=== PATIENT | female | born 1955 | race Caucasian/White ===

== ENCOUNTER 2019-09-30 13:00 | Outpatient (CLI) | payer OTHER, SELFPAY ==
[2019-09-30 13:20] LABS: Hematocrit 40.3 % (37.0-47.0); Hemoglobin 12.6 g/dL (12.0-15.0); Immature Reticulocyte Fraction 7.6 % (3.0-15.9); Mean Corpuscular HGB Conc 31.3 g/dl (32-36); Mean Corpuscular Hemoglobin 28.4 pg (26-34); Mean Corpuscular Volume 90.8 fl (80-100); Mean Platelet Volume 9.1 fl (7.4-10.4); Platelet Count Result 299 k/mm3 (150-375); Red Blood Count 4.44 M/mm3 (4.2-5.4); Reticulocyte Hemoglobin Conten 32.1 pg (28.2-35.7); Reticulocyte Percent 0.84 % (0.7-4.3); Reticulocytes Absolute 0.04 B/L (32.2-175.7); White Blood Count 5.3 K/mm3 (4.5-10.0)
[2019-09-30 13:32] LABS: Alanine Aminotransferase 16 U/L (4-35); Albumin Level 4.6 g/dL (3.5-5.1); Alkaline Phosphatase 55 U/L (38-126); Aspartate Amino Transferase 29 U/L (14-36); Bilirubin,Total 0.4 mg/dL (0.2-1.3); Blood Urea Nitrogen 11 mg/dL (7-17); Carbon Dioxide 32 mmol/L (22-30); Chloride 100 mmol/L (98-107); Estimated Glomerular Filt Rate > 60; Glucose 79 mg/dL (65-105); Magnesium 2.2 mg/dL (1.6-2.3); Phosphorus 4.2 mg/dL (2.5-4.5); Potassium 3.7 mmol/L (3.4-5.0); Sodium 137 mmol/L (137-145)
[2019-09-30 14:07] LABS: Vitamin D 25 Hydroxy 88.9 ng/mL
[2019-09-30 17:08] LABS: Hemoglobin A1C 5.9 % (<5.7)
== END 2019-09-30 13:01 | disposition home or self-care (01) ==
PROVIDERS: PCP Family Medicine; Visit Provider Family Medicine
DX: M81.0 Age-related osteoporosis without current pathological fracture (principal); D64.9 Anemia, unspecified; E21.3 Hyperparathyroidism, unspecified
CPT/HCPCS: 36415; 80053; 82306; 83036; 83735; 84100; 85027; 85046; 86337

== ENCOUNTER 2020-04-02 14:35 | Outpatient (CLI) | payer OTHER, SELFPAY ==
[2020-04-02 15:11] LABS: Basophils Absolute Auto 0.1 K/mm3 (0.0-0.1); Basophils Percent Auto 1.1 % (0.2-1.2); Eosinophils Absolute Auto 0.1 K/mm3 (0-0.3); Hematocrit 36.9 % (37.0-47.0); Hemoglobin 12.3 g/dL (12.0-15.0); Immature Granulocyte Absolute 0.01 K/mm3 (0.00-0.031); Immature Granulocyte Percent A 0.2 % (0-0.5); Lymphocytes Absolute Auto 1.66 K/mm3 (0.9-3.2); Lymphocytes Percent Auto 35.2 % (18.3-44.2); Mean Corpuscular HGB Conc 33.3 g/dl (32-36); Mean Corpuscular Hemoglobin 29.6 pg (26-34); Mean Corpuscular Volume 88.9 fl (80-100); Mean Platelet Volume 8.9 fl (7.4-10.4); Monocytes Absolute Auto 0.5 K/mm3 (0.1-0.6); Neutrophils Absolute Auto 2.4 K/mm3 (1.3-6.7); Neutrophils Percent Auto 50.5 % (45.5-73.1); Platelet Count Result 311 k/mm3 (150-375); Red Blood Count 4.15 M/mm3 (4.2-5.4); Red Cell Distribution Width 14.8 % (11.5-14.5); White Blood Count 4.7 K/mm3 (4.5-10.0)
[2020-04-02 15:27] LABS: Alanine Aminotransferase 18 U/L (4-35); Albumin Level 4.5 g/dL (3.5-5.1); Alkaline Phosphatase 50 U/L (38-126); Anion Gap 6 mmol/L (8-16); Aspartate Amino Transferase 27 U/L (14-36); Bilirubin,Total 0.4 mg/dL (0.2-1.3); Blood Urea Nitrogen 10 mg/dL (7-17); CRP < 0.5 mg/dL (<1.0); Calcium 8.9 mg/dL (8.4-10.2); Carbon Dioxide 31 mmol/L (22-30); Chloride 100 mmol/L (98-107); Estimated Glomerular Filt Rate > 60; Glucose 92 mg/dL (65-105); Potassium 3.7 mmol/L (3.4-5.0); Sodium 137 mmol/L (137-145)
[2020-04-02 15:51] LABS: Erythrocyte Sedimentation Rate 13 mm/hr (0-20)
== END 2020-04-02 14:36 | disposition home or self-care (01) ==
PROVIDERS: PCP Family Medicine; Visit Provider Registered Nurse
DX: R76.8 Other specified abnormal immunological findings in serum (principal); M25.50 Pain in unspecified joint
CPT/HCPCS: 36415; 80053; 85025; 85652; 86140

== ENCOUNTER 2020-05-28 10:41 | Outpatient (CLI) | payer OTHER, SELFPAY ==
[2020-05-28 12:26] LABS: Iron 60 ug/dL (37-170)
[2020-05-28 12:31] LABS: CRP < 0.5 mg/dL (<1.0); Calcium 9.6 mg/dL (8.4-10.2)
[2020-05-28 12:36] LABS: Percent Iron Saturation 13 % (20-50)
[2020-05-28 12:40] LABS: Parathyroid Intact 28.1 pg/mL (7.5-53.5)
[2020-05-28 13:03] LABS: Ferritin 5.08 ng/mL (11.1-264)
== END 2020-05-28 10:42 | disposition home or self-care (01) ==
LOC: ANHLAB 10:44
PROVIDERS: PCP Family Medicine; Referring Provider Internal Medicine Hematology & Oncology; Visit Provider Family Medicine
DX: E21.3 Hyperparathyroidism, unspecified (principal); D64.9 Anemia, unspecified
CPT/HCPCS: 36415; 82310; 82728; 83525; 83540; 83550; 83970; 84681; 86140

== ENCOUNTER 2021-05-14 09:09 | Outpatient (CLI) | payer OTHER, SELFPAY ==
[2021-05-14 09:43] LABS: Hematocrit 38.6 % (37.0-47.0); Hemoglobin 12.3 g/dL (12.0-15.0); Mean Corpuscular HGB Conc 31.9 g/dl (32-36); Mean Corpuscular Hemoglobin 28.9 pg (26-34); Mean Corpuscular Volume 90.8 fl (80-100); Mean Platelet Volume 8.9 fl (7.4-10.4); Platelet Count Result 357 k/mm3 (150-375); Red Blood Count 4.25 M/mm3 (4.2-5.4); Red Cell Distribution Width 14.4 % (11.5-14.5); White Blood Count 4.4 K/mm3 (4.5-10.0)
[2021-05-14 09:58] LABS: Alanine Aminotransferase 20 U/L (4-35); Albumin Level 4.5 g/dL (3.5-5.1); Alkaline Phosphatase 39 U/L (38-126); Anion Gap 6 mmol/L (8-16); Aspartate Amino Transferase 30 U/L (14-36); Bilirubin,Total 0.4 mg/dL (0.2-1.3); Blood Urea Nitrogen 10 mg/dL (7-17); Calcium 9.1 mg/dL (8.4-10.2); Carbon Dioxide 30 mmol/L (22-30); Chloride 99 mmol/L (98-107); Cholesterol 243 mg/dL (0-200); Estimated Glomerular Filt Rate > 60; Glucose 100 mg/dL (65-110); HDL Direct 97 mg/dL; Potassium 4.1 mmol/L (3.4-5.0); Sodium 135 mmol/L (137-145); Triglycerides 52 mg/dL (<150)
[2021-05-14 10:09] LABS: LDL Cholesterol Direct 114 mg/dL
== END 2021-05-14 09:10 | disposition home or self-care (01) ==
LOC: ANHLAB 09:11
PROVIDERS: PCP Family Medicine; Visit Provider Family Medicine
DX: E55.9 Vitamin D deficiency, unspecified (principal); E61.1 Iron deficiency; E21.3 Hyperparathyroidism, unspecified; D64.9 Anemia, unspecified
CPT/HCPCS: 36415; 80053; 80061; 82306; 82310; 83970; 85027

== ENCOUNTER 2022-07-10 08:37 | Outpatient (CLI) | payer MEDICARE, SELFPAY ==
[2022-07-10 19:24] LABS: Basophils Absolute Auto 0.1 K/mm3 (0.0-0.1); Basophils Percent Auto 1.2 % (0.2-1.2); Eosinophils Absolute Auto 0.2 K/mm3 (0-0.3); Eosinophils Percent Auto 4.9 % (0-4.4); Hematocrit 34.2 % (37.0-47.0); Hemoglobin 10.2 g/dL (12.0-15.0); Immature Granulocyte Absolute 0.02 K/mm3 (0.00-0.031); Immature Granulocyte Percent A 0.4 % (0-0.5); Lymphocytes Absolute Auto 1.31 K/mm3 (0.9-3.2); Lymphocytes Percent Auto 26.7 % (18.3-44.2); Mean Corpuscular HGB Conc 29.8 g/dl (32-36); Mean Corpuscular Hemoglobin 23.3 pg (26-34); Mean Corpuscular Volume 78.3 fl (80-100); Monocytes Absolute Auto 0.6 K/mm3 (0.1-0.6); Monocytes Percent Auto 12.4 % (2.6-8.5); Neutrophils Absolute Auto 2.7 K/mm3 (1.3-6.7); Neutrophils Percent Auto 54.4 % (45.5-73.1); Platelet Count Result 406 k/mm3 (150-375); Red Blood Count 4.37 M/mm3 (4.2-5.4); White Blood Count 4.9 K/mm3 (4.5-10.0)
[2022-07-10 19:53] LABS: Rheumatoid Factor < 8.6 IU/ML (<12)
[2022-07-10 20:11] LABS: Alanine Aminotransferase 25 U/L (6-35); Albumin Level 4.5 g/dL (3.5-5.1); Alkaline Phosphatase 46 U/L (38-126); Anion Gap 5 mmol/L (8-16); Aspartate Amino Transferase 36 U/L (14-36); Bilirubin,Total 0.5 mg/dL (0.2-1.3); Blood Urea Nitrogen 13 mg/dL (7-17); Calcium 8.7 mg/dL (8.4-10.2); Carbon Dioxide 31 mmol/L (22-30); Chloride 97 mmol/L (98-107); Cholesterol 256 mg/dL (0-200); Estimated Glomerular Filt Rate > 60; Glucose 79 mg/dL (65-110); HDL Direct 100 mg/dL; Potassium 3.9 mmol/L (3.4-5.0); Sodium 133 mmol/L (137-145); Triglycerides 48 mg/dL (<150)
[2022-07-10 20:19] LABS: Platelet Estimate Increased (Adequate)
[2022-07-10 20:20] LABS: Schistocytes None Seen (NORMAL)
[2022-07-10 20:21] LABS: Anisocytosis 2+ (NORMAL); Hypochromasia 1+ (NORMAL)
[2022-07-10 20:22] LABS: LDL Cholesterol Direct 98 mg/dL
[2022-07-10 20:52] LABS: Hepatitis C Virus Antibody Negative (Negative)
[2022-07-10 22:15] LABS: Free T4 Free Thyroxine Reflex 0.82 ng/dL (0.78-2.19)
[2022-07-10 22:57] LABS: Total Triiodothyronine (T3) 1.26 NG/ML (0.97-1.69)
[2022-07-14 08:22] LABS: ANA Cascade Screen Negative (Negative)
== END 2022-07-10 08:38 | disposition home or self-care (01) ==
PROVIDERS: PCP Family Medicine; Visit Provider Physician Assistant
DX: Z00.00 Encounter for general adult medical examination without abnormal findings (principal); M06.9 Rheumatoid arthritis, unspecified; M81.0 Age-related osteoporosis without current pathological fracture; Z79.899 Other long term (current) drug therapy
CPT/HCPCS: 36415; 80053; 80061; 84439; 84443; 84480; 85025; 86038; 86430; 86803

== ENCOUNTER 2022-07-23 11:05 | Outpatient (NON) | payer MEDICARE, SELFPAY ==
[2022-07-23 22:04] LABS: IFOB Positive Control Positive
[2022-07-23 22:05] LABS: Immunochemical Fecal Occult Bl Positive (N)
== END 2022-07-23 11:06 | disposition home or self-care (01) ==
LOC: ANHGOSHLAB 11:07
PROVIDERS: PCP Family Medicine; Visit Provider Family Medicine
DX: R19.5 Other fecal abnormalities (principal)
CPT/HCPCS: 82274

== ENCOUNTER 2022-08-15 14:18 | Outpatient (CLI) | payer MEDICARE, SELFPAY ==
[2022-08-15 18:36] LABS: Basophils Absolute Auto 0.1 K/mm3 (0.0-0.1); Basophils Percent Auto 1.2 % (0.2-1.2); Eosinophils Absolute Auto 0.2 K/mm3 (0-0.3); Eosinophils Percent Auto 3.6 % (0-4.4); Hematocrit 35.8 % (37.0-47.0); Hemoglobin 10.8 g/dL (12.0-15.0); Immature Granulocyte Absolute 0.01 K/mm3 (0.00-0.031); Immature Granulocyte Percent A 0.2 % (0-0.5); Lymphocytes Absolute Auto 1.99 K/mm3 (0.9-3.2); Lymphocytes Percent Auto 34.2 % (18.3-44.2); Mean Corpuscular HGB Conc 30.2 g/dl (32-36); Mean Corpuscular Hemoglobin 25.1 pg (26-34); Mean Corpuscular Volume 83.3 fl (80-100); Mean Platelet Volume 9.6 fl (7.4-10.4); Monocytes Absolute Auto 0.6 K/mm3 (0.1-0.6); Monocytes Percent Auto 10.3 % (2.6-8.5); Neutrophils Absolute Auto 2.9 K/mm3 (1.3-6.7); Neutrophils Percent Auto 50.5 % (45.5-73.1); Platelet Count Result 343 k/mm3 (150-375); Red Cell Distribution Width 21.8 % (11.5-14.5); White Blood Count 5.8 K/mm3 (4.5-10.0)
[2022-08-15 18:45] LABS: Iron 50 ug/dL (37-170)
[2022-08-15 18:56] LABS: Percent Iron Saturation 11 % (20-50)
[2022-08-15 19:20] LABS: Ferritin 5.69 ng/mL (11.1-264)
== END 2022-08-15 14:19 | disposition home or self-care (01) ==
LOC: ANHGOSHLAB 14:20
PROVIDERS: PCP Family Medicine; Visit Provider Physician Assistant
DX: E61.1 Iron deficiency (principal)
CPT/HCPCS: 36415; 82728; 83540; 83550; 85025

== ENCOUNTER 2022-10-31 09:08 | Outpatient (CLI) | payer MEDICARE, SELFPAY ==
[2022-10-31 14:20] LABS: Basophils Absolute Auto 0.1 K/mm3 (0.0-0.1); Basophils Percent Auto 1.4 % (0.2-1.2); Eosinophils Absolute Auto 0.2 K/mm3 (0-0.3); Eosinophils Percent Auto 3.8 % (0-4.4); Hematocrit 40.4 % (37.0-47.0); Hemoglobin 12.8 g/dL (12.0-15.0); Immature Granulocyte Absolute 0.01 K/mm3 (0.00-0.031); Immature Granulocyte Percent A 0.2 % (0-0.5); Lymphocytes Absolute Auto 1.34 K/mm3 (0.9-3.2); Lymphocytes Percent Auto 30.2 % (18.3-44.2); Mean Corpuscular HGB Conc 31.7 g/dl (32-36); Mean Corpuscular Hemoglobin 28.4 pg (26-34); Mean Corpuscular Volume 89.6 fl (80-100); Mean Platelet Volume 9.1 fl (7.4-10.4); Monocytes Absolute Auto 0.5 K/mm3 (0.1-0.6); Neutrophils Absolute Auto 2.3 K/mm3 (1.3-6.7); Neutrophils Percent Auto 52.4 % (45.5-73.1); Platelet Count Result 263 k/mm3 (150-375); Red Blood Count 4.51 M/mm3 (4.2-5.4); Red Cell Distribution Width 19.9 % (11.5-14.5); White Blood Count 4.4 K/mm3 (4.5-10.0)
[2022-10-31 14:39] LABS: Iron 100 ug/dL (37-170)
[2022-10-31 14:48] LABS: Alanine Aminotransferase 24 U/L (6-35); Albumin Level 4.2 g/dL (3.5-5.1); Alkaline Phosphatase 40 U/L (38-126); Anion Gap 5 mmol/L (8-16); Aspartate Amino Transferase 33 U/L (14-36); Bilirubin,Total 0.5 mg/dL (0.2-1.3); Blood Urea Nitrogen 10 mg/dL (7-17); Calcium 8.7 mg/dL (8.4-10.2); Carbon Dioxide 30 mmol/L (22-30); Chloride 102 mmol/L (98-107); Estimated Glomerular Filt Rate > 60; Glucose 92 mg/dL (65-110); Potassium 3.9 mmol/L (3.4-5.0); Sodium 137 mmol/L (137-145)
[2022-10-31 14:51] LABS: Percent Iron Saturation 25 % (20-50)
[2022-10-31 14:58] LABS: Free T4 Free Thyroxine 0.72 ng/mL (0.78-2.19)
[2022-10-31 15:15] LABS: Ferritin 7.63 ng/mL (11.1-264)
[2022-11-05 13:18] LABS: Vitamin D 1,25 (OH)2 Total 48 pg/mL (18-72); Vitamin D2 1,25 (OH)2 <8 pg/mL; Vitamin D3 1,25 (OH)2 48 pg/mL
== END 2022-10-31 09:09 | disposition home or self-care (01) ==
LOC: ANHGOSHLAB 09:10
PROVIDERS: PCP Family Medicine; Visit Provider Physician Assistant
DX: M06.9 Rheumatoid arthritis, unspecified (principal); E55.9 Vitamin D deficiency, unspecified; E21.3 Hyperparathyroidism, unspecified; E61.1 Iron deficiency; Z79.899 Other long term (current) drug therapy
CPT/HCPCS: 36415; 80053; 82652; 82728; 83540; 83550; 84439; 84443; 85025

== ENCOUNTER 2022-11-17 14:29 | Outpatient (CLI) | payer MEDICARE, SELFPAY ==
[2022-11-20 04:14] LABS: Thyroid Peroxidase Antibodies 873 IU/mL (<9)
== END 2022-11-17 14:30 | disposition home or self-care (01) ==
LOC: ANHGOSHLAB 14:30
PROVIDERS: PCP Family Medicine; Visit Provider Family Medicine
DX: R94.6 Abnormal results of thyroid function studies (principal)
CPT/HCPCS: 36415; 84443; 86376

== ENCOUNTER 2023-02-03 09:41 | Outpatient (CLI) | payer MEDICARE, SELFPAY | END 2023-02-03 09:42 | disposition home or self-care (01) | PROVIDERS: PCP Family Medicine; Visit Provider Family Medicine | DX: E03.9 Hypothyroidism, unspecified (principal) | CPT/HCPCS: 36415; 84443 ==

== ENCOUNTER 2023-03-05 10:16 | Outpatient (CLI) | payer MEDICARE, SELFPAY ==
[2023-03-05 13:57] LABS: Basophils Percent Auto 0.7 % (0.2-1.2); Eosinophils Absolute Auto 0.2 K/mm3 (0-0.3); Eosinophils Percent Auto 2.7 % (0-4.4); Hematocrit 43.5 % (37.0-47.0); Hemoglobin 13.9 g/dL (12.0-15.0); Immature Granulocyte Absolute 0.03 K/mm3 (0.00-0.031); Immature Granulocyte Percent A 0.5 % (0-0.5); Lymphocytes Absolute Auto 1.36 K/mm3 (0.9-3.2); Mean Corpuscular Hemoglobin 32.3 pg (26-34); Mean Corpuscular Volume 100.9 fl (80-100); Mean Platelet Volume 9.3 fl (7.4-10.4); Monocytes Absolute Auto 0.7 K/mm3 (0.1-0.6); Monocytes Percent Auto 11.8 % (2.6-8.5); Neutrophils Absolute Auto 3.6 K/mm3 (1.3-6.7); Neutrophils Percent Auto 61.3 % (45.5-73.1); Platelet Count Result 308 k/mm3 (150-375); Red Blood Count 4.31 M/mm3 (4.2-5.4); Red Cell Distribution Width 13.3 % (11.5-14.5); White Blood Count 5.9 K/mm3 (4.5-10.0)
== END 2023-03-05 10:17 | disposition home or self-care (01) ==
PROVIDERS: PCP Family Medicine; Visit Provider Family Medicine
DX: D64.9 Anemia, unspecified (principal)
CPT/HCPCS: 36415; 85025

== ENCOUNTER 2023-04-24 10:42 | Outpatient (CLI) | payer MEDICARE, SELFPAY ==
[2023-04-24 13:56] LABS: Basophils Absolute Auto 0.1 K/mm3 (0.0-0.1); Eosinophils Absolute Auto 0.1 K/mm3 (0-0.3); Eosinophils Percent Auto 2.3 % (0-4.4); Hematocrit 43.2 % (37.0-47.0); Hemoglobin 13.7 g/dL (12.0-15.0); Immature Granulocyte Absolute 0.01 K/mm3 (0.00-0.031); Immature Granulocyte Percent A 0.2 % (0-0.5); Lymphocytes Percent Auto 25.2 % (18.3-44.2); Mean Corpuscular HGB Conc 31.7 g/dl (32-36); Mean Corpuscular Hemoglobin 31.5 pg (26-34); Mean Corpuscular Volume 99.3 fl (80-100); Mean Platelet Volume 9.4 fl (7.4-10.4); Monocytes Absolute Auto 0.6 K/mm3 (0.1-0.6); Monocytes Percent Auto 12.2 % (2.6-8.5); Neutrophils Absolute Auto 3.1 K/mm3 (1.3-6.7); Neutrophils Percent Auto 59.1 % (45.5-73.1); Platelet Count Result 242 k/mm3 (150-375); Red Blood Count 4.35 M/mm3 (4.2-5.4); Red Cell Distribution Width 13.2 % (11.5-14.5); White Blood Count 5.2 K/mm3 (4.5-10.0)
== END 2023-04-24 10:43 | disposition home or self-care (01) ==
LOC: ANHGOSHLAB 10:43
PROVIDERS: PCP Family Medicine; Visit Provider Family Medicine
DX: E03.9 Hypothyroidism, unspecified (principal); K52.831 Collagenous colitis
CPT/HCPCS: 36415; 84443; 85025

== ENCOUNTER 2023-07-06 15:16 | Outpatient (CLI) | payer MEDICARE, SELFPAY ==
[2023-07-06 18:59] LABS: Basophils Absolute Auto 0.1 K/mm3 (0.0-0.1); Basophils Percent Auto 0.8 % (0.2-1.2); Eosinophils Absolute Auto 0.2 K/mm3 (0-0.3); Eosinophils Percent Auto 3.5 % (0-4.4); Hematocrit 41.1 % (37.0-47.0); Hemoglobin 13.2 g/dL (12.0-15.0); Lymphocytes Percent Auto 22.5 % (18.3-44.2); Mean Corpuscular HGB Conc 32.1 g/dl (32-36); Mean Corpuscular Hemoglobin 31.5 pg (26-34); Mean Corpuscular Volume 98.1 fl (80-100); Mean Platelet Volume 9.5 fl (7.4-10.4); Monocytes Absolute Auto 0.8 K/mm3 (0.1-0.6); Monocytes Percent Auto 12.2 % (2.6-8.5); Neutrophils Absolute Auto 3.8 K/mm3 (1.3-6.7); Platelet Count Result 275 k/mm3 (150-375); Red Blood Count 4.19 M/mm3 (4.2-5.4); Red Cell Distribution Width 13.7 % (11.5-14.5); White Blood Count 6.2 K/mm3 (4.5-10.0)
== END 2023-07-06 15:17 | disposition home or self-care (01) ==
LOC: ANHGOSHLAB 15:19
PROVIDERS: PCP Family Medicine; Visit Provider Nurse Practitioner Family
DX: D64.9 Anemia, unspecified (principal); R94.6 Abnormal results of thyroid function studies
CPT/HCPCS: 36415; 84443; 85025

== ENCOUNTER 2023-11-12 05:52 | Day surgery (SDC) | payer MEDICARE, SELFPAY ==
[2023-10-23 12:53] VITALS: BMI 22.1
[2023-11-12 06:25] VITALS: BMI 22.2
[2023-11-12 06:27] VITALS: BP 130/75; PULSE 60; RESP 16; TEMP 36.6; O2SAT 99
--- NOTE | 2023-11-12 06:28 | WPDANESEPPF ---
Anes - Initial Pre Proc Eval Procedure: Operation Date: 11/12/23 07:30 Proposed Procedures p Excision Ganglion Cyst Right Volar Wrist - En Hatfield MD Date/Time: 11/12/23 06:28 Surgeon: En Hatfield MD Pre Op Diagnosis: Ganglion Cyst Right Wrist Patient Data Age: 68 Gender: F Height: 1.57 m Weight: 55.1 kg Last Vital Signs Temp 36.6 C 11/12/23 06:27 Pulse 60 11/12/23 06:27 Resp 16 11/12/23 06:27 BP 130/75 11/12/23 06:27 Pulse Ox 99 11/12/23 06:27 O2 Del Method Room Air 11/12/23 06:27 Allergies Allergy/AdvReac Type Severity Reaction Status Date / Time latex Allergy Unknown unknown Verified 11/12/23 06:16 Penicillins Allergy Unknown Skin Verified 11/12/23 06:16 Reaction Home Medications Medication Instructions Recorded Confirmed Type vitamin D3 250 mcg (10,000 1 cap PO DAILY 07/04/22 11/12/23 History unit)-vitamin K2 45 mcg capsule Synthroid 75 mcg tablet 75 mcg PO DAILY #90 tabs 03/05/23 11/12/23 Rx (levothyroxine) ferrous sulfate 142 mg (45 mg 142 mg PO DAILY #90 tabs 03/05/23 11/12/23 Rx iron) tablet,extended release (Slow Fe) cinnamon bark 500 mg capsule 500 mg PO DAILY 07/06/23 11/12/23 History hhktjetw-rbrd-nsac 8 mg-folic 400 1 tablet PO DAILY 07/06/23 11/12/23 History mcg-K 50 mcg-lutein 300 mcg tablet (Centrum Silver Women) magnesium carb,citrate,oxide 225 mg PO DAILY 10/23/23 11/12/23 History (Magnesium Complex) sumatriptan succinate 100 mg 100 mg PO ONCE PRN Migraine 10/23/23 11/12/23 History tablet (Imitrex) Headache Patient hx anesthesia problems: none Family hx anesthesia problems: none Results Review: All pre-operative results and documents have been reviewed as part of the pre-operative evaluation. [facility] Past Medical History Medical History (Updated 11/12/23 @ 06:29 by Fish Nunez DO) History of basal cell carcinoma History of osteoarthritis Hypothyroid Iron deficiency Migraine Rheumatoid arthritis Surgical History Surgical History History of hysterectomy History of tubal ligation S/p bilateral blepharoplasty Family History Family History Grandparent Diabetes mellitus Family history of malignant neoplasm of cervix Family history of malignant neoplasm of uterus Father Hypertension Family history of cardiovascular disease Mother Family history of arthritis Family history of irritable bowel syndrome Sibling Family history of arthritis Other Family history of malignant neoplasm of breast in first degree relative Social History Social History (Updated 07/06/23 @ 14:25 by Ada Cartwright MA) Smoking status: Never smoker Second hand tobacco smoke exposure: Yes Alcohol intake: current Alcohol use details: 2 drinks monthly Substance use: never Substance use type: does not use Do You Feel Safe in your Home?: Yes Lack of Transportation: No Lack of Food: Never True Current Housing: I Have Housing Concerned About Future Housing: No Difficulty Paying Gas/Electric Bills: No Difficulty Paying for Meds: No Currently Unemployed: No Education: Bachelor's Degree Difficulty w/ Childcare or Family Care: No Living arrangements: alone Spiritual care concerns: No Anes - Eval Final PreProcedure Day of Procedure 11/12/23 06:28 Patient weight: normal Heart: regular rate and rhythm Lungs: clear to auscultation and normal air movement Airway: Mallampati scale class II Neurological: alert and oriented Last oral intake: >/= 8 hours ASA classification: II Emergent: no Anesthetic plan: proceed Anesthesia type and monitoring: general GIVS and standard monitoring Results Review: All pre-operative results and documents have been reviewed as part of the pre-operative evaluation. Informed Consent: The patient'
[2023-11-12] MEDS: LACTATED RINGERS 1,000 ML 30 ML IV CONT (06:43)
--- NOTE | 2023-11-12 06:58 | PM.HPGS ---
History of Present Illness History of Present Illness Chief complaint: Ganglion Cyst Right Wrist Narrative: Patient seen and examined in pre-operative holding area. No interval change in medical history or symptoms. Patient recalls previous discussion of benefits and alternatives to procedure. Continues to desire to proceed with right volar wrist ganglion cyst excision. Reviewed procedure, post-op expectations and risks including but not limited to bleeding, infection, injury to tendon/nerve/vessel, decreased hand function, stiffness, RSD, no change or worsening of symptoms, recurrence. I discussed the possible use of assistants and their participation in the case. Patient stated understanding and signed the consent form wishing to proceed. Review of Systems Review of Systems: All systems reviewed & are unremarkable except as noted in HPI and below PMFSH Past Medical History Medical History (Updated 11/12/23 @ 06:29 by Fish Nunez DO) History of basal cell carcinoma History of osteoarthritis Hypothyroid Iron deficiency Migraine Rheumatoid arthritis Surgical History Surgical History History of hysterectomy History of tubal ligation S/p bilateral blepharoplasty Family History Family History Grandparent Diabetes mellitus Family history of malignant neoplasm of cervix Family history of malignant neoplasm of uterus Father Hypertension Family history of cardiovascular disease Mother Family history of arthritis Family history of irritable bowel syndrome Sibling Family history of arthritis Other Family history of malignant neoplasm of breast in first degree relative Social History Social History (Updated 07/06/23 @ 14:25 by Ada Cartwright MA) Smoking status: Never smoker Second hand tobacco smoke exposure: Yes Alcohol intake: current Alcohol use details: 2 drinks monthly Substance use: never Substance use type: does not use Do You Feel Safe in your Home?: Yes Lack of Transportation: No Lack of Food: Never True Current Housing: I Have Housing Concerned About Future Housing: No Difficulty Paying Gas/Electric Bills: No Difficulty Paying for Meds: No Currently Unemployed: No Education: Bachelor's Degree Difficulty w/ Childcare or Family Care: No Living arrangements: alone Spiritual care concerns: No Meds Home Medications and Allergies Home Medications Medication Instructions Recorded Confirmed Type vitamin D3 250 mcg (10,000 1 cap PO DAILY 07/04/22 11/12/23 History unit)-vitamin K2 45 mcg capsule Synthroid 75 mcg tablet 75 mcg PO DAILY #90 tabs 03/05/23 11/12/23 Rx (levothyroxine) ferrous sulfate 142 mg (45 mg 142 mg PO DAILY #90 tabs 03/05/23 11/12/23 Rx iron) tablet,extended release (Slow Fe) cinnamon bark 500 mg capsule 500 mg PO DAILY 07/06/23 11/12/23 History vljdciwu-rzlc-ospf 8 mg-folic 400 1 tablet PO DAILY 07/06/23 11/12/23 History mcg-K 50 mcg-lutein 300 mcg tablet (Centrum Silver Women) magnesium carb,citrate,oxide 225 mg PO DAILY 10/23/23 11/12/23 History (Magnesium Complex) sumatriptan succinate 100 mg 100 mg PO ONCE PRN Migraine 10/23/23 11/12/23 History tablet (Imitrex) Headache Allergies Allergy/AdvReac Type Severity Reaction Status Date / Time latex Allergy Unknown unknown Verified 11/12/23 06:16 Penicillins Allergy Unknown Skin Verified 11/12/23 06:16 Reaction Vital Signs Vital Signs - 24 hr 11/12/23 06:27 Temperature 36.6 C Pulse Rate 60 Respiratory Rate 16 Blood Pressure 130/75 Pulse Oximetry 99 Oxygen Delivery Room Air Exam Narrative: unchanged Assessment and Plan Assessment and plan (1) Ganglion cyst of volar aspect of right wrist: Code(s): M67.431 - Ganglion, right wrist Status: Acute Assessment and Plan:
--- NOTE | 2023-11-12 07:00 | P.OP_ITS ---
Procedure Note - Detailed Date of Procedure 11/12/23 Pre-op Diagnosis Ganglion Cyst Right Wrist Post-op Diagnosis Other (right volar wrist mass) Procedure Performed right volar wrist mass excision Surgeon En Hatfield MD Manufacturing Production Technician omar peter pa-c Anesthesia MAC Description of Procedure INFORMED CONSENT: The patient was seen and examined and marked in the pre-op area.? The patient signed the consent form. PROCEDURE IN DETAIL:The patient taken back to OR on the stretcher in supine position. Time out performed with anesthesia, surgeon and staff agreeing on patient's name site and surgery to be performed SCDs were placed on the lower extremities and inflated. A tourniquet was placed on {right} upper extremity and antibiotics given IV After anesthesia administered sedation I injected {5}cc 1%lido with epi and 0.5% marcaine plain at the operative site The?{right upper extremity}?was prepped and draped in sterile fashion the??{right upper extremity} was? exsanguinated with Esmarch bandage proximal to the mass and tourniquet inflated to 250mmHg I made a transvers incision over right volar wrist mass through skin and dermis with a 15 blade scalpel. Littler scissors were used to spread through subq and through antebrachial fascia. no clear ganglion cyst was identified but there was a thickened mass of more fibrous appearing tissue overlying the fcr and appearing to be connected to volar wrist capsule just radial to fcr. This mass encompassed a small venous structure possibly being a venous aneurysm. The radial artery was protected throughout the procedure and tourniquet let down to verify this. I dissected the mass off the fcr and then I transected the mass with bipolar cautery at the base near the volar wrist capsule and repaired the capsular defect with 4-0 vicryl. I irrigated with normal saline and closed skin with 4-0 monocryl for dermis and subcuticular. It was noted there was also a more prominent pole to the scaphoid palpable under fcr and small fraying of underside of fcr which could be partially responsible for patient's symptoms A dressing of Dermabond, 4x4, jerel, and a volar splint was applied for patient safety, security, and comfort and secured with an reva bandage after the tourniquet was let down noting the hand was warm and well perfused. The patient was then awaken from anesthesia and transferred to the recovery room in stable condition.? Complications - none EBL- 0cc Disposition - home in stable conditions Omar Peter PA-C was essential for positioning, retraction, closure and dressing placement [facility] Billing Surgery - Charge Forward: Surgery Billing ([id number] for omar)
[2023-11-12] MEDS: ceFAZolin SODIUM 2 GM/20 ML SW SYRINGE IV PUSH (07:28)
[2023-11-12] MEDS: BUPivacaine HCL 0.5% 10 ML AMP 2.5 ML INFILTRATE (07:33)
[2023-11-12] MEDS: LIDO 1%/EPINEPHRINE 1:100,000 50 ML VIAL INFILTRATE (07:33)
[2023-11-12 08:06] VITALS: BP 107/66; PULSE 73; RESP 14; O2SAT 97
[2023-11-12 08:16] VITALS: BP 100/68; PULSE 57; RESP 14; O2SAT 98
[2023-11-12 08:26] VITALS: BP 114/72; PULSE 57; RESP 15; O2SAT 97
[2023-11-12 08:36] VITALS: BP 111/66; PULSE 66; RESP 14; O2SAT 98
--- NOTE | 2023-11-12 11:21 | WPDANESPN ---
Anes - Prog Note Post-Op Date/Time: 11/12/23 11:21 Cardiovascular status: normal Respiratory status: normal Airway patency: baseline Mental status: baseline Post-Op hydration status: normal Vital Signs: Last Vital Signs Temp 36.6 C 11/12/23 06:27 Pulse 66 11/12/23 08:36 Resp 14 11/12/23 08:36 BP 111/66 11/12/23 08:36 Pulse Ox 98 11/12/23 08:36 O2 Del Method Room Air 11/12/23 08:36 Pain Score (VAS): 0 I/O: Intake & Output 11/11/23 11/12/23 11/12/23 23:59 07:59 15:59 Intake Total 800 Balance 800 Post-procedural complaints: none Patient Feedback: Patient satisfied with anesthetic care. Other Findings: Patient vital signs back to baseline. Patient denies nausea and vomiting. Patient's pain under control. Patient OK for discharge.
== END 2023-11-12 08:49 | disposition home or self-care (01) ==
PROVIDERS: PCP Family Medicine; Visit Provider Plastic Surgery
PROC: (CPT 25076; principal; 2023-11-12 07:30)
DX: R22.31 Localized swelling, mass and lump, right upper limb (principal)
CPT/HCPCS: 25076

== ENCOUNTER 2023-11-12 07:00 | Outpatient (NON) | payer MEDICARE, SELFPAY | END 2023-11-12 07:01 | disposition home or self-care (01) | LOC: ANHLAB 11-13 11:42 | PROVIDERS: PCP Family Medicine; Visit Provider Plastic Surgery | DX: M67.431 Ganglion, right wrist (principal) | CPT/HCPCS: 88304 ==

== ENCOUNTER 2024-01-04 16:03 | Outpatient (CLI) | payer MEDICARE, SELFPAY | END 2024-01-04 16:04 | disposition home or self-care (01) | LOC: ANHGOSHLAB 16:05 | PROVIDERS: PCP Family Medicine; Visit Provider Family Medicine | DX: E03.9 Hypothyroidism, unspecified (principal) | CPT/HCPCS: 36415; 84443 ==

== ENCOUNTER 2024-01-05 10:47 | Outpatient (CLI) | payer MEDICARE, SELFPAY ==
--- NOTE | ~2024-01-05 | XR_ITS ---
XR wrist RT min 3V 01/05/2024 11:08 Indication: Right wrist pain. Ganglion cyst. Procedure: 4 views right wrist Comparison: 08/31/2018 Findings: There is mild polyarticular osteoarthritis. Normal mineralization. No fracture or traumatic malalignment. No foreign bodies. Impression: 1: Mild polyarticular osteoarthritis. Reviewed, dictated and finalized at location B. Impression: 1: Mild polyarticular osteoarthritis.
== END 2024-01-05 10:48 | disposition home or self-care (01) ==
PROVIDERS: PCP Family Medicine; Visit Provider Physician Assistant Surgical
DX: M67.431 Ganglion, right wrist (principal); M19.031 Primary osteoarthritis, right wrist
CPT/HCPCS: 73110

== ENCOUNTER 2024-08-11 15:59 | Outpatient (CLI) | payer MEDICARE, SELFPAY ==
[2024-08-11 19:10] LABS: Basophils Percent Auto 0.7 % (0.2-1.2); Eosinophils Absolute Auto 0.2 K/mm3 (0-0.3); Eosinophils Percent Auto 2.8 % (0-4.4); Hematocrit 39.5 % (37.0-47.0); Hemoglobin 13.1 g/dL (12.0-15.0); Immature Granulocyte Absolute 0.01 K/mm3 (0.00-0.031); Immature Granulocyte Percent A 0.2 % (0-0.5); Lymphocytes Absolute Auto 1.71 K/mm3 (0.9-3.2); Lymphocytes Percent Auto 29.8 % (18.3-44.2); Mean Corpuscular HGB Conc 33.2 g/dl (32-36); Mean Corpuscular Hemoglobin 31.9 pg (26-34); Mean Corpuscular Volume 96.1 fl (80-100); Mean Platelet Volume 9.6 fl (7.4-10.4); Monocytes Absolute Auto 0.7 K/mm3 (0.1-0.6); Monocytes Percent Auto 11.9 % (2.6-8.5); Neutrophils Absolute Auto 3.1 K/mm3 (1.3-6.7); Neutrophils Percent Auto 54.6 % (45.5-73.1); Platelet Count Result 296 k/mm3 (150-375); Red Blood Count 4.11 M/mm3 (4.2-5.4); Red Cell Distribution Width 13.5 % (11.5-14.5); White Blood Count 5.7 K/mm3 (4.5-10.0)
[2024-08-11 20:42] LABS: Alanine Aminotransferase 24 U/L (6-35); Albumin Level 4.4 g/dL (3.5-5.1); Alkaline Phosphatase 63 U/L (38-126); Anion Gap 9 mmol/L (4-12); Aspartate Amino Transferase 30 U/L (14-36); Bilirubin,Total 0.5 mg/dL (0.2-1.3); Blood Urea Nitrogen 15 mg/dL (7-17); Carbon Dioxide 30 mmol/L (22-30); Chloride 99 mmol/L (98-107); Estimated Glomerular Filt Rate > 60; Glucose 88 mg/dL (65-110); Potassium 3.7 mmol/L (3.4-5.0); Sodium 138 mmol/L (137-145)
[2024-08-11 22:41] LABS: Vitamin D 25 Hydroxy 45.5 ng/mL
== END 2024-08-11 16:00 | disposition home or self-care (01) ==
LOC: ANHGOSHLAB 16:00
PROVIDERS: PCP Family Medicine; Visit Provider Family Medicine
DX: R94.6 Abnormal results of thyroid function studies (principal); E03.9 Hypothyroidism, unspecified; E21.3 Hyperparathyroidism, unspecified; E61.1 Iron deficiency; D64.9 Anemia, unspecified; M81.0 Age-related osteoporosis without current pathological fracture
CPT/HCPCS: 36415; 80053; 82306; 82728; 84443; 85025

== ENCOUNTER 2024-09-21 10:38 | Outpatient (CLI) | payer MEDICARE, SELFPAY ==
--- OUTSIDE RECORDS SUMMARY | 2024-09-21 12:11 | XMS_ITS | Encounter Summary ---
Author Organization [facility] Address [address] [place] [address] Care Team Providers Care Marine Fuel Dock Attendant Name Role Phone Ney Frazier MD Primary Care Provider +1- [phone] Encounter Details Date Type Department Care Team (Late st Contact Info) Description 04/27/2000 Outpatient Historical [facility] MINI BACCARAT DEALER - Medical [facility] [id number] [place] [address] Guilherme Montes De Oca MD [address] [facility] [address] [place] [address] Social History Tobacco Use Types Packs/Day Years Used Date Smoking Tobacco: Never Assessed Comments Unknown Sex and Gender Information Value Date Recorded Sex Assigned at Not on file Legal Sex Female 4:57 AM TESTING COORDINATOR Gender Identity Not on file Sexual Orientation Not on file documented as of this encounter Plan of Treatment Not on file documented as of this encounter Visit Diagnoses Not on filedocumented in this encounter Care Teams Marine Fuel Dock Attendant Relationship Specialty Start Date End Date Ney Frazier MD PCP - General Family Practice 07/10/17 documented as of this encounter
--- OUTSIDE RECORDS SUMMARY | 2024-09-21 12:11 | XMS_ITS | Encounter Summary ---
Author Organization [facility] Address [address] [place] [address] Care Team Providers Care Grain Spouter Name Role Phone Ney Frazier MD Primary Care Provider +1- [phone] Encounter Details Date Type Department Care Team (Latest Contact Info) Description 10/11/2003 Outpatient Historical [facility] Guilherme Zheng MD [address] [facility] [address] [address] SCREENING MAMM-MAILG NEOPL-OTHER (Primary Dx) Social History Tobacco Use Types Packs/Day Years Used Date Smoking Tobacco: Never Assessed Comments Unknown Sex and Gender Information Value Date Recorded Sex Assigned at Not on file Legal Sex Female 4:57 AM OFFSHORE DIVER Gender Identity Not on file Sexual Orientation Not on file documented as of this encounter Plan of Treatment Not on file documented as of this encounter Visit Diagnoses Diagnosis Other screening mammogram- Primary documented in this encounter Care Teams Grain Spouter Relationship Specialty Start Date End Date Ney Frazier MD PCP - General Family Practice 07/10/17 documented as of this encounter
--- OUTSIDE RECORDS SUMMARY | 2024-09-21 12:11 | XMS_ITS | Encounter Summary ---
Author Organization [facility] Address [address] [place] [address] Care Team Providers Care Manager Epic Name Role Phone Ney Frazier MD Primary Care Provider +1- [phone] Encounter Details Date Type Department Care Team (Latest Contact Info) Description 02/06/2004 Inpatient Historical [facility] Guilherme Montes De Oca MD [address] [facility] [address] [address] Bryan Rodríguez MD NO ADDRESS ON FILE UTERINE PROLAPSE (Primary Dx) Social History Tobacco Use Types Packs/Day Years Used Date Smoking Tobacco: Never Assessed Comments Unknown Sex and Gender Information Value Date Recorded Sex Assigned at Not on file Legal Sex Female 4:57 AM MASTIC SPRAYER Gender Identity Not on file Sexual Orientation Not on file documented as of this encounter Plan of Treatment Not on file documented as of this encounter Visit Diagnoses Diagnosis Uterine prolapse without mention of vaginal wall prolapse- Primary documented in this encounter Care Teams Manager Epic Relationship Specialty Start Date End Date Ney Frazier MD PCP - General Family Practice 07/10/17 documented as of this encounter
--- OUTSIDE RECORDS SUMMARY | 2024-09-21 12:11 | XMS_ITS | Encounter Summary ---
Author Organization [facility] Address [address] [place] [address] Care Team Providers Care Admin Dir Name Role Phone Ney Frazier MD Primary Care Provider +1- [phone] Encounter Details Date Type Department Care Team (Late st Contact Info) Description 04/30/2005 Outpatient Historical [facility] SENIOR SOLUTIONS WORKFLOW CONSULTANT - [facility] [address] [facility] [address] [place] [address] Guilherme Montes De Oca MD [address] [facility] [address] [address] Social History Tobacco Use Types Packs/Day Years Used Date Smoking Tobacco: Never Assessed Comments Unknown Sex and Gender Information Value Date Recorded Sex Assigned at Not on file Legal Sex Female 4:57 AM COMMUNITY HEALTH SPECIALIST Gender Identity Not on file Sexual Orientation Not on file documented as of this encounter Plan of Treatment Not on file documented as of this encounter Visit Diagnoses Not on filedocumented in this encounter Care Teams Admin Dir Relationship Specialty Start Date End Date Ney Frazier MD PCP - General Family Practice 07/10/17 documented as of this encounter
--- OUTSIDE RECORDS SUMMARY | 2024-09-21 12:11 | XMS_ITS | Encounter Summary ---
Author Organization [facility] Address [address] [place] [address] Care Team Providers Care Custom Harvester Name Role Phone Ney Frazier MD Primary Care Provider +1- [phone] Encounter Details Date Type Department Care Team (Late st Contact Info) Description 04/15/2006 Outpatient Historical [facility] CHURCH HISTORY PROFESSOR - [facility] [address] [facility] [address] [place] [address] Guilherme Montes De Oca MD [address] [facility] [address] [address] Social History Tobacco Use Types Packs/Day Years Used Date Smoking Tobacco: Never Assessed Comments Unknown Sex and Gender Information Value Date Recorded Sex Assigned at Not on file Legal Sex Female 4:57 AM COMPUTER METEOROLOGIST Gender Identity Not on file Sexual Orientation Not on file documented as of this encounter Plan of Treatment Not on file documented as of this encounter Visit Diagnoses Not on filedocumented in this encounter Care Teams Custom Harvester Relationship Specialty Start Date End Date Ney Frazier MD PCP - General Family Practice 07/10/17 documented as of this encounter
--- OUTSIDE RECORDS SUMMARY | 2024-09-21 12:11 | XMS_ITS | Encounter Summary ---
Author Organization [facility] Address [address] [place] [address] Care Team Providers Care Head Of Mobile Name Role Phone Ney Frazier MD Primary Care Provider +1- [phone] Encounter Details Date Type Department Care Team (Late st Contact Info) Description 04/17/1999 Outpatient Historical [facility] POWDER WORKER TNT - Medical [facility] [id number] [place] [address] Guilherme Montes De Oca MD [address] [facility] [address] [place] [address] Social History Tobacco Use Types Packs/Day Years Used Date Smoking Tobacco: Never Assessed Comments Unknown Sex and Gender Information Value Date Recorded Sex Assigned at Not on file Legal Sex Female 4:57 AM NON LICENSED NUCLEAR EQUIPMENT OPERATOR Gender Identity Not on file Sexual Orientation Not on file documented as of this encounter Plan of Treatment Not on file documented as of this encounter Visit Diagnoses Not on filedocumented in this encounter Care Teams Head Of Mobile Relationship Specialty Start Date End Date Ney Frazier MD PCP - General Family Practice 07/10/17 documented as of this encounter
--- OUTSIDE RECORDS SUMMARY | 2024-09-21 12:11 | XMS_ITS | Encounter Summary ---
Author Organization [facility] Address [address] [place] [address] Care Team Providers Care Home Health Travel Ot Name Role Phone Ney Frazier MD Primary Care Provider +1- [phone] Encounter Details Date Type Department Care Team (Late st Contact Info) Description 12/26/2003 Outpatient Historical [facility] MAINTENANCE GROUNDMAN - Medical [facility] [address] [facility] [address] [place] [address] Guilherme Montes De Oca MD [address] [facility] [address] [place] [address] Social History Tobacco Use Types Packs/Day Years Used Date Smoking Tobacco: Never Assessed Comments Unknown Sex and Gender Information Value Date Recorded Sex Assigned at Not on file Legal Sex Female 4:57 AM WELL DRILL OPERATOR HELPER CABLE TOOL Gender Identity Not on file Sexual Orientation Not on file documented as of this encounter Plan of Treatment Not on file documented as of this encounter Visit Diagnoses Not on filedocumented in this encounter Care Teams Home Health Travel Ot Relationship Specialty Start Date End Date Ney Frazier MD PCP - General Family Practice 07/10/17 documented as of this encounter
--- OUTSIDE RECORDS SUMMARY | 2024-09-21 12:11 | XMS_ITS | Encounter Summary ---
Author Organization [facility] Address [address] [place] [address] Care Team Providers Care Offbearer Name Role Phone Ney Frazier MD Primary Care Provider +1- [phone] Encounter Details Date Type Department Care Team (Late st Contact Info) Description 04/18/2002 Outpatient Historical [facility] LEGAL ADMINISTRATOR - [facility] [address] [facility] [address] [place] [address] Guilherme Montes De Oca MD [address] [facility] [address] [address] Social History Tobacco Use Types Packs/Day Years Used Date Smoking Tobacco: Never Assessed Comments Unknown Sex and Gender Information Value Date Recorded Sex Assigned at Not on file Legal Sex Female 4:57 AM SPECIAL NEEDS LIBRARIAN Gender Identity Not on file Sexual Orientation Not on file documented as of this encounter Plan of Treatment Not on file documented as of this encounter Visit Diagnoses Not on filedocumented in this encounter Care Teams Offbearer Relationship Specialty Start Date End Date Ney Frazier MD PCP - General Family Practice 07/10/17 documented as of this encounter
--- OUTSIDE RECORDS SUMMARY | 2024-09-21 12:11 | XMS_ITS | Encounter Summary ---
Author Organization [facility] Address [address] [place] [address] Care Team Providers Care Brake Rider Name Role Phone Ney Frazier MD Primary Care Provider +1- [phone] Encounter Details Date Type Department Care Team (Latest Contact Info) Description 10/15/2004 Outpatient Historical [facility] Guilherme Zheng MD [address] [facility] [address] [address] SCREENING MAMM-MAILG NEOPL-OTHER (Primary Dx) Social History Tobacco Use Types Packs/Day Years Used Date Smoking Tobacco: Never Assessed Comments Unknown Sex and Gender Information Value Date Recorded Sex Assigned at Not on file Legal Sex Female 4:57 AM WELFARE SUPERVISOR Gender Identity Not on file Sexual Orientation Not on file documented as of this encounter Plan of Treatment Not on file documented as of this encounter Visit Diagnoses Diagnosis Other screening mammogram- Primary documented in this encounter Care Teams Brake Rider Relationship Specialty Start Date End Date Ney Frazier MD PCP - General Family Practice 07/10/17 documented as of this encounter
--- OUTSIDE RECORDS SUMMARY | 2024-09-21 12:11 | XMS_ITS | Encounter Summary ---
Author Organization [facility] Address [address] [place] [address] Care Team Providers Care Maintenance Coordinator Name Role Phone Ney Frazier MD Primary Care Provider +1- [phone] Encounter Details Date Type Department Care Team (Late st Contact Info) Description 03/13/2004 Outpatient Historical [facility] ASSISTANT ACCOUNT MANAGER - [facility] [address] [facility] [address] [place] [address] Guilherme Montes De Oca MD [address] [facility] [address] [address] Social History Tobacco Use Types Packs/Day Years Used Date Smoking Tobacco: Never Assessed Comments Unknown Sex and Gender Information Value Date Recorded Sex Assigned at Not on file Legal Sex Female 4:57 AM BEHAVIORAL HEALTH ASSISTANT Gender Identity Not on file Sexual Orientation Not on file documented as of this encounter Plan of Treatment Not on file documented as of this encounter Visit Diagnoses Not on filedocumented in this encounter Care Teams Maintenance Coordinator Relationship Specialty Start Date End Date Ney Frazier MD PCP - General Family Practice 07/10/17 documented as of this encounter
--- OUTSIDE RECORDS SUMMARY | 2024-09-21 12:11 | XMS_ITS | Encounter Summary ---
Author Organization [facility] Address [address] [place] [address] Care Team Providers Care Substation Operator Name Role Phone Ney Frazier MD Primary Care Provider +1- [phone] Encounter Details Date Type Department Care Team (Late st Contact Info) Description 04/10/2004 Outpatient Historical [facility] STRUCTURAL ANALYSIS ENGINEER - [facility] [address] [facility] [address] [place] [address] Guilherme Montes De Oca MD [address] [facility] [address] [address] Social History Tobacco Use Types Packs/Day Years Used Date Smoking Tobacco: Never Assessed Comments Unknown Sex and Gender Information Value Date Recorded Sex Assigned at Not on file Legal Sex Female 4:57 AM TELEPHOTO INSTALLER Gender Identity Not on file Sexual Orientation Not on file documented as of this encounter Plan of Treatment Not on file documented as of this encounter Visit Diagnoses Not on filedocumented in this encounter Care Teams Substation Operator Relationship Specialty Start Date End Date Ney Frazier MD PCP - General Family Practice 07/10/17 documented as of this encounter
--- OUTSIDE RECORDS SUMMARY | 2024-09-21 12:11 | XMS_ITS | Encounter Summary ---
Author Organization [facility] Address [address] [place] [address] Care Team Providers Care Shower Enclosure Installer Name Role Phone Ney Frazier MD Primary Care Provider +1- [phone] Encounter Details Date Type Department Care Team (Latest Contact Info) Description 09/29/[address] 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
--- OUTSIDE RECORDS SUMMARY | 2024-09-21 12:11 | XMS_ITS | Encounter Summary ---
Author Organization [facility] Address [address] [place] [address] Care Team Providers Care State Trooper Name Role Phone Ney Frazier MD Primary Care Provider +1- [phone] Encounter Details Date Type Department Care Team (Late st Contact Info) Description 04/24/2003 Outpatient Historical [facility] VP PRODUCT MANAGEMENT - [facility] [address] [facility] [address] [place] [address] Guilherme Montes De Oca MD [address] [facility] [address] [address] Social History Tobacco Use Types Packs/Day Years Used Date Smoking Tobacco: Never Assessed Comments Unknown Sex and Gender Information Value Date Recorded Sex Assigned at Not on file 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
--- OUTSIDE RECORDS SUMMARY | 2024-09-21 12:11 | XMS_ITS | Encounter Summary ---
Author Organization [facility] Address [address] [place] [address] Care Team Providers Care Electrician Machine Shop Name Role Phone Ney Frazier MD Primary Care Provider +1- [phone] Encounter Details Date Type Department Care Team (Latest Contact Info) Description 09/17/2001 Outpatient Historical HIS [facility] Fan Villanueva MD [address] [facility] [address] [place] [id number] SCREENING MAMM-MAILG NEOPL-OTHER (Primary Dx) Social History Tobacco Use Types Packs/Day Years Used Date Smoking Tobacco: Never Assessed Comments Unknown Sex and Gender Information Value Date Recorded Sex Assigned at Not on file 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
--- OUTSIDE RECORDS SUMMARY | 2024-09-21 12:11 | XMS_ITS | Encounter Summary ---
Author Organization [facility] Address 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
--- OUTSIDE RECORDS SUMMARY | 2024-09-21 12:11 | XMS_ITS | Encounter Summary ---
Author Organization [employer] Address [address] [place] [address] Care Team Providers Care Instructional Support Technician Name Role Phone Ney Frazier MD Primary Care Provider +1- [phone] Encounter Details Date Type Department Care Team (Latest Contact Info) Description 11/18/2006 Outpatient Historical [facility] Guilherme Montes De Oca MD [address] [facility] [address] [address] Special Screening for Osteoporosis (Primary Dx) Social History Tobacco Use Types Packs/Day Years Used Date Smoking Tobacco: Never Assessed Comments Unknown Sex and Gender Information Value Date Recorded Sex Assigned at Not on file 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
--- OUTSIDE RECORDS SUMMARY | 2024-09-21 12:11 | XMS_ITS | Encounter Summary ---
Author Organization [facility] Address [address] [place] [address] Care Team Providers Care Log Buyer Name Role Phone Ney Frazier MD Primary Care Provider +1- [phone] Encounter Details Date Type Department Care Team (Late st Contact Info) Description 12/26/2003 Outpatient Historical [facility] BUTCHERETTE - Medical [facility] [address] [facility] [address] [place] [address] Guilherme Montes De Oca MD [address] [facility] [address] [place] [address] Social History Tobacco Use Types Packs/Day Years Used Date Smoking Tobacco: Never Assessed Comments Unknown Sex and Gender Information Value Date Recorded Sex Assigned at Not on file Legal Sex Female 4:57 AM EMERGENCY ROOM ORDERLY Gender Identity Not on file Sexual Orientation Not on file documented as of this encounter Plan of Treatment Not on file documented as of this encounter Visit Diagnoses Not on filedocumented in this encounter Care Teams Log Buyer Relationship Specialty Start Date End Date Ney Frazier MD PCP - General Family Practice 07/10/17 documented as of this encounter
--- OUTSIDE RECORDS SUMMARY | 2024-09-21 12:11 | XMS_ITS | Encounter Summary ---
Author Organization [employer] Address [address] [place] [address] Care Team Providers Care Quarter Section Ironer Name Role Phone Ney Frazier MD Primary Care Provider +1- [phone] Encounter Details Date Type Department Care Team (Latest Contact Info) Description 10/29/2005 Outpatient Historical [facility] Guilherme Montes De Oca MD [address] [facility] [address] [address] Disorder of Bone and Cartilage, Unspecified (Primary Dx) Social History Tobacco Use Types Packs/Day Years Used Date Smoking Tobacco: Never Assessed Comments Unknown Sex and Gender Information Value Date Recorded Sex Assigned at Not on file 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
--- OUTSIDE RECORDS SUMMARY | 2024-09-21 12:11 | XMS_ITS | Encounter Summary ---
Author Organization [employer] Address [address] [place] [address] Care Team Providers Care Finance And Administration Manager Name Role Phone Ney Frazier MD Primary Care Provider +1- [phone] Encounter Details Date Type Department Care Team (Late st Contact Info) Description 01/22/2004 Outpatient Historical [facility] ([facility]t Cardiology[facility]) [address] 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
--- OUTSIDE RECORDS SUMMARY | 2024-09-21 12:11 | XMS_ITS | Encounter Summary ---
Author Organization [facility] Address [address] [place] [address] Care Team Providers Care Engineering Job Titles Name Role Phone Ney Frazier MD Primary Care Provider +1- [phone] Encounter Details Date Type Department Care Team (Latest Contact Info) Description 11/18/2007 Outpatient Historical HIS [facility] REBECCA Mitchell, Aleida Rojas MD [address] [place] [address] Other Screening Mammogram Social History Tobacco Use Types Packs/Day Years Used Date Smoking Tobacco: Never Assessed Comments Unknown Sex and Gender Information Value Date Recorded Sex Assigned at Not on file Legal Sex Female 4:57 AM 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 IMPROVEMENT 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 Gender Identity Not on file Sexual Orientation Not on file documented as of this encounter Plan of Treatment Not on file documented as of this encounter Procedures Procedure Name Priority Date/Time Associated Diagnosis Comments MAMMO SCREEN BILAT W OR WO CAD Routine 11/18/2007 10:51 AM CDT documented in this encounter Results * MAMMO DIGITAL SCREEN BILAT (11/18/2007 10:51 AM CDT) Anatomical Region Laterality Modality Breast Bilateral Other 11/18/2007 10:5 1 AM CDT Narrative 11/18/2007 11:20 AM CDT [address] [address] Admit Date: 11/18/2007 GIL LEDEZMA Sex: F Admit Prov: ALEIDA MITCHELL Date: 1955 Primary Care Prov: DEVANTE DOVE CMRN: [id number] Room: MELISSA N: [id number] IMAGING SERVICES Ordering Prov: ALEIDA MITCHELL Accession Number: [id number] Interpretation DIGITAL SCREENING MAMMOGRAM WITH COMPUTER-ASSISTED DIAGNOSIS Findings: The breasts were imaged with digital mammographic technique. There are scattered fibroglandular densities. No significant mass, malignant calcification or architectural distortion is noted. The CAD system does not highlight any suspicious areas. Summary: No mammographic evidence of malignancy. There has been no significant change from prior study of 11/19. Recommendations: Bilateral yearly screening mammogram is recommended. Assessment BIRADS: 1-Negative Recommendation: Normal interval follow-up Dictated by: LARISSA REED Electronically signed by: LARISSA REED 11/18/2007 11:20 Transcribed: 11/18/2007 11:20 CXZ Procedure Note Larissa Reed - 11/18/2007 [facility] [address] [place], [place] [address] Admit Date: 11/18/2007 GIL LEDEZMA Sex: F Admit Prov: ALEIDA MITCHELL Date: 1955 Primary Care Prov: DEVANTE DOVE CMRN: [id number] Room: MELISSA N: [id number] IMAGING SERVICES Ordering Prov: ALEIDA MITCHELL Interpretation DIGITAL SCREENING MAMMOGRAM WITH COMPUTER-ASSISTED DIAGNOSIS Findings: The breasts were imaged with digital mammographictechnique. There are scattered fibroglandular densities. No significant mass, malignant calcification or architectural distortion is noted. The CAD system does not highlight any suspicious areas. Summary: No mammographic evidence of malignancy. There has been no significant change from prior study of 11/19. Recommendations: Bilateral yearly screening mammogram is recommended. Assessment BIRADS: 1-Negative Recommendation: Normal interval follow-up Dictated by: REED, LARISSA X Electronically signed by: LARISSA REED 11/18/2007 11:20 Transcribed: 11/18/2007 11:20 CXZ us Aleida Mitchell MD MAMMO ORDERABLES Final Result documented in this encounter Visit Diagnoses Diagnosis Other screening mammogram documented in this encounter Care Teams Engineering Job Titles Relationship Specialty Start Date End Date Ney Frazier MD PCP - General Family Practice 07/10/17 documented as of this encounter
--- OUTSIDE RECORDS SUMMARY | 2024-09-21 12:11 | XMS_ITS | Encounter Summary ---
Author Organization [facility] Address [address] [place] [address] Care Team Providers Care New Accounts Clerk Name Role Phone Ney Frazier MD Primary Care Provider +1- [phone] Encounter Details Date Type Department Care Team (Latest Contact Info) Description 10/29/2005 Outpatient Historical HIS [facility] Guilherme Zheng MD [address] [facility] [address] [address] Other Screening Mammogram (Primary Dx) Social History Tobacco Use Types Packs/Day Years Used Date Smoking Tobacco: Never Assessed Comments Unknown Sex and Gender Information Value Date Recorded Sex Assigned at Not on file 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
--- OUTSIDE RECORDS SUMMARY | 2024-09-21 12:11 | XMS_ITS | Encounter Summary ---
Author Organization [facility] Address [address] [place] [address] Care Team Providers Care Track Equipment Operator Name Role Phone Ney Frazier MD Primary Care Provider +1- [phone] Encounter Details Date Type Department Care Team (Late st Contact Info) Description 02/06/2004 Outpatient Historical [facility] ACCOUNTING SUPPORT SPECIALIST - [facility] [address] [facility] [address] [place] [address] Guilherme Montes De Oca MD [address] [facility] [address] [address] Social History Tobacco Use Types Packs/Day Years Used Date Smoking Tobacco: Never Assessed Comments Unknown Sex and Gender Information Value Date Recorded Sex Assigned at Not on file 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
--- OUTSIDE RECORDS SUMMARY | 2024-09-21 12:11 | XMS_ITS | Encounter Summary ---
Author Organization [employer] Address 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
--- OUTSIDE RECORDS SUMMARY | 2024-09-21 12:11 | XMS_ITS | Encounter Summary ---
Author Organization [facility] Address [address] [place] [address] Care Team Providers Care Pre Owned Sales Consultant Name Role Phone Ney Frazier MD Primary Care Provider +1- [phone] Encounter Details Date Type Department Care Team (Latest Contact Info) Description 07/30/1999 Outpatient Historical HIS [facility] Guilherme hZeng MD [address] [facility] [address] [address] Other screening mammogram (Primary Dx) Social History Tobacco Use Types Packs/Day Years Used Date Smoking Tobacco: Never Assessed Comments Unknown Sex and Gender Information Value Date Recorded Sex Assigned at Not on file 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
--- OUTSIDE RECORDS SUMMARY | 2024-09-21 12:11 | XMS_ITS | Encounter Summary ---
Author Organization [facility] Address [address] [place] [address] Care Team Providers Care Preflight Mechanic Name Role Phone Ney Frazier MD Primary Care Provider +1- [phone] Encounter Details Date Type Department Care Team (Late st Contact Info) Description 02/13/2004 Outpatient Historical [facility] AUDIO TECHNICIAN - Medical [facility] [address] [facility] [address] [place] [address] Guilherme Montes De Oca MD [address] [facility] [address] [place] [address] Social History Tobacco Use Types Packs/Day Years Used Date Smoking Tobacco: Never Assessed Comments Unknown Sex and Gender Information Value Date Recorded Sex Assigned at Not on file Legal Sex Female 4:57 AM COSTUME SHOP MANAGER Gender Identity Not on file Sexual Orientation Not on file documented as of this encounter Plan of Treatment Not on file documented as of this encounter Visit Diagnoses Not on filedocumented in this encounter Care Teams Preflight Mechanic Relationship Specialty Start Date End Date Ney Frazier MD PCP - General Family Practice 07/10/17 documented as of this encounter
--- OUTSIDE RECORDS SUMMARY | 2024-09-21 12:11 | XMS_ITS | Encounter Summary ---
Author Organization [employer] Address [address] [place] [address] Care Team Providers Care Insole And Outsole Splitter Name Role Phone Ney Frazier MD Primary Care Provider +1- [phone] Encounter Details Date Type Department Care Team (Latest Contact Info) Description 10/15/2004 Outpatient Historical [facility] Guilherme Montes De Oca MD [address] [facility] [address] [address] MENOPAUSAL DISORDER NEC (Primary Dx) Social History Tobacco Use Types Packs/Day Years Used Date Smoking Tobacco: Never Assessed Comments Unknown Sex and Gender Information Value Date Recorded Sex Assigned at Not on file Legal Sex Female 4:57 AM SODA JERKER Gender Identity Not on file Sexual Orientation Not on file documented as of this encounter Plan of Treatment Not on file documented as of this encounter Visit Diagnoses Diagnosis Other specified menopausal and postmenopausal disorder- Primary documented in this encounter Care Teams Insole And Outsole Splitter Relationship Specialty Start Date End Date Ney Frazier MD PCP - General Family Practice 07/10/17 documented as of this encounter
--- OUTSIDE RECORDS SUMMARY | 2024-09-21 12:11 | XMS_ITS | Encounter Summary ---
Author Organization [facility] Address [address] [place] [address] Care Team Providers Care Rough Rounder Name Role Phone Ney Frazier MD Primary Care Provider +1- [phone] Encounter Details Date Type Department Care Team (Late st Contact Info) Description 04/26/2001 Outpatient Historical [facility] SHANK TAPER - Medical [facility] [address] [place] [address] Guilherme Montes De Oca MD [address] [facility] [address] [place] [address] Social History Tobacco Use Types Packs/Day Years Used Date Smoking Tobacco: Never Assessed Comments Unknown Sex and Gender Information Value Date Recorded Sex Assigned at Not on file Legal Sex Female 4:57 AM TANNING SOLUTION MAKER Gender Identity Not on file Sexual Orientation Not on file documented as of this encounter Plan of Treatment Not on file documented as of this encounter Visit Diagnoses Not on filedocumented in this encounter Care Teams Rough Rounder Relationship Specialty Start Date End Date Ney Frazier MD PCP - General Family Practice 07/10/17 documented as of this encounter
--- OUTSIDE RECORDS SUMMARY | 2024-09-21 12:11 | XMS_ITS | Encounter Summary ---
Author Organization [facility] Address [address] [place] [address] Care Team Providers Care Neuroradiologist Name Role Phone Ney Frazier MD Primary Care Provider +1- [phone] Encounter Details Date Type Department Care Team (Latest Contact Info) Description 10/11/2002 Outpatient Historical HIS [facility] Guilherme Zheng MD [address] [facility] [address] [address] UNSP ABNORMAL MAMMOGRAM (Primary Dx) Social History Tobacco Use Types Packs/Day Years Used Date Smoking Tobacco: Never Assessed Comments Unknown Sex and Gender Information Value Date Recorded Sex Assigned at Not on file Legal Sex Female 4:57 AM BOBJ DEVELOPER Gender Identity Not on file Sexual Orientation Not on file documented as of this encounter Plan of Treatment Not on file documented as of this encounter Visit Diagnoses Diagnosis Abnormal mammogram, unspecified- Primary documented in this encounter Care Teams Neuroradiologist Relationship Specialty Start Date End Date Ney Frazier MD PCP - General Family Practice 07/10/17 documented as of this encounter
--- OUTSIDE RECORDS SUMMARY | 2024-09-21 12:11 | XMS_ITS | Encounter Summary ---
Author Organization [email or web address] Address [address] [place] [address] Care Team Providers Care Recycling Collections Driver Name Role Phone Ney Frazier MD Primary Care Provider +1- [phone] Encounter Details Date Type Department Care Team (Latest Contact Info) Description 08/21/2000 Outpatient Historical HIS [facility] Guilherme Zheng MD [address] [facility] [address] [address] Other screening mammogram (Primary Dx) Social History Tobacco Use Types Packs/Day Years Used Date Smoking Tobacco: Never Assessed Comments Unknown Sex and Gender Information Value Date Recorded Sex Assigned at Not on file Legal Sex Female 4:[address] MACHINE OPERATOR ROAD FORMS Gender Identity Not on file Sexual Orientation Not on file documented as of this encounter Plan of Treatment Not on file documented as of this encounter Visit Diagnoses Diagnosis Other screening mammogram- Primary documented in this encounter Care Teams Recycling Collections Driver Relationship Specialty Start Date End Date Ney Frazier MD PCP - General Family Practice 07/10/17 documented as of this encounter
--- OUTSIDE RECORDS SUMMARY | 2024-09-21 12:12 | XMS_ITS | Encounter Summary ---
Author Organization [facility] Address 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 Gender Identity Not on file Sexual Orientation Not on file documented as of this encounter Plan of Treatment Not on file documented as of this encounter Procedures Procedure Name Priority Date/Time Associated Diagnosis Comments MAMMO SCREEN BILAT W OR WO CAD Routine 11/27/2008 12:19 PM CDT documented in this encounter Results * MAMMO DIGITAL SCREEN BILAT (11/27/2008 12:19 PM CDT) Anatomical Region Laterality Modality Breast Bilateral Other 11/27/2008 12:1 9 PM CDT Narrative 11/28/2008 7:59 AM CDT [address] [address] Admit Date: 11/27/2008 GIL LEDEZMA Sex: F Admit Prov: ALEIDA MITCHELL Date: 1955 Primary Care Prov: DEVANTE DOVE CMRN: [id number] Room: MELISSA N: [id number] IMAGING SERVICES Ordering Prov: ALEIDA MITCHELL Accession Number: [id number] Interpretation BILATERAL SCREENING DIGITAL MAMMOGRAMS WITH COMPUTER ASSISTED DIAGNOSIS, 11/27/2008 Clinical History: Annual screening study. Comparison is made to 10/15/2004. The breast parenchyma has scattered fibroglandular densities. No new dominant masses, suspicious calcifications or areas of parenchymal asymmetry or distortion are identified. The images were reviewed using the CAD system. Impression: Stable screening mammogram Recommend routine followup Overall assessment: BIRADS category 1 - Negative. Assessment BIRADS: 1-Negative Recommendation: Normal interval follow-up Dictated by: KARI GUZMAN Electronically signed by: KARI GUZMAN 11/28/2008 07:58 Transcribed: 11/27/2008 21:24 SDJ Procedure Note Kari Guzman - 11/28/[address] [place], [place] [address] Admit Date: 11/27/2008 GIL LEDEZMA Sex: F Admit Prov: ALEIDA MITCHELL Date: 1955 Primary Care Prov: DEVANTE DOVE CMRN: [id number] Room: MELISSA N: [id number] IMAGING SERVICES Ordering Prov: ALEIDA MITHCELL Interpretation BILATERAL SCREENING DIGITAL MAMMOGRAMS WITH COMPUTER ASSISTEDDIAGNOSIS, 11/27/2008 Clinical History: Annual screening study. Comparison is made to 10/15/2004. The breast parenchyma hasscattered fibroglandular densities. No new dominant masses, suspiciouscalcifications or areas of parenchymal asymmetry or distortion are identified. Theimages were reviewed using the CAD system. Impression: Stable screening mammogram Recommend routine followup Overall assessment: BIRADS category 1 - Negative. Assessment BIRADS: 1-Negative Recommendation: Normal interval follow-up Dictated by: KARI GUZMAN Electronically signed by: KARI GUZMAN 11/28/2008 07:58 Transcribed: 11/27/2008 21:24 SDJ us Aleida Mitchell MD MAMMO ORDERABLES Final Result documented in this encounter Visit Diagnoses Diagnosis Other screening mammogram documented in this encounter Care Teams Server Manager Relationship Specialty Start Date End Date Ney Frazier MD PCP - General Family Practice 07/10/17 documented as of this encounter
--- OUTSIDE RECORDS SUMMARY | 2024-09-21 12:12 | XMS_ITS | Encounter Summary ---
Author Organization [employer] Address [address] [place] [address] Care Team Providers Care Professor Of Anthropology Name Role Phone Ney Frazier MD Primary Care Provider +1- [phone] Encounter Details Date Type Department Care Team (Latest Contact Info) Description 11/27/2008 Outpatient Historical [facility] Roberto Deal MD [address] [place] [phone] Asymptomatic Postmenopausal Status (Age-Related) (Natural); Special Screening for Osteoporosis Social History Tobacco Use Types Packs/Day Years Used Date Smoking Tobacco: Never Assessed Comments Unknown Sex and Gender Information Value Date Recorded Sex Assigned at Not on file 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
--- OUTSIDE RECORDS SUMMARY | 2024-09-21 12:12 | XMS_ITS | Clinical Summary ---
Author Organization [facility] Address [address] [place] [address] Phone Care Team Providers Care Weir Fisherman Name Role Phone Ney Frazier MD Primary Care Provider +1- [phone] Allergies Active Allergy Reactions Criticality Noted Date Comments Latex, Natural Rubber Shortness of Breath/Wheezing High 07/27/2009 Penicillins Rash Low 07/27/2009 Medications OTHER Cinnamon Active beta-carotene,A ,-vits C,E/mins (OCUVITE ORAL) Take by mouth. Active cholecalciferol , vitamin D3, (VITAMIN D3 ORAL) Take by mouth. drops Active DENOSUMAB SUBCUT Inject by subcutaneous injection. Active estradioL (VAGIFEM) 10 mcg tablet INSERT ONE TABLET VAGINALLY TWICE WEEKLY 24 Tablet 3 1 Active alendronate (FOSAMAX) 70 mg tablet Take 1 Tablet (70 mg) by mouth every 7 days. 13 Tablet 3 03/20/2022 9:51 AM CDT 2 Active Active Problems Problem Noted Date Diagnosed Date Localized osteoporosis witho ut current pathological fracture 01/06/2020 Well woman exam with routine gynecological exam 09/04/2010 Special screening for osteoporosis 09/04/2010 Encounters Date Type Department Care Team Description 09/20/2024 External Device Data STL ABSTRACTION Provider, Abstract 08/22/2024 1:46 PM CDT - 08/22/2024 11:59 PM CDT Hospital Encounter [facility] [address] [place] [address] Ney Frazier MD Discharge Disposition: Home or Self Care 08/22/2024 1:44 PM CDT - 08/22/2024 11:59 PM CDT Hospital Encounter [facility] [place] A [address] [place] [address] Ney Frazier MD Discharge Disposition: Home or Self Care 08/03/2024 External Device Data STL ABSTRACTION Provider, Abstract 08/03/2024 External Device Data STL ABSTRACTION Provider, Abstract 07/06/2024 External Device Data STL ABSTRACTION Provider, Abstract from Last 3 Months Immunizations Immunization Administration Dates Next Due Influenza Seasonal Unspecified Formulation IM Family History Medical History Relation Name Comments Hypertension Father Stroke Father Breast Cancer Maternal Aunt Cancer Maternal Grandmother cervica l Healthy Mother Ovarian Cancer Neg Hx Relation Name Status Comments Brother Daughter 1 Alive Daughter 2 Alive Father Maternal Aunt Maternal Grandfather Maternal Grandmother Mother Alive Paternal Grandfather Paternal Grandmother Sister 1 Alive Sister 2 Alive Sister 3 Alive Son 1 Alive Son 2 Alive Social History Tobacco Use Types Packs/Day Years Used Date Smoking Tobacco: Never Smokeless Tobacco: Never Alcohol Use Standard Drinks/Week Comments Yes 0 (1 standard drink = 0.6 oz pur e alcohol) Comments No Sex and Gender Information Value Date Recorded Sex Assigned at Not on file 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 Sex 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 Gender Identity Not on file Sexual Orientation Not on file 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 Not on file Not on file Last Filed Vital Signs Vital Sign Reading Time Taken Comments Blood Pressure 126/72 12/26/2020 1:57 PM CDT Pulse 61 06/24/2018 9:45 AM RESTAURANT AREA DIRECTOR Temperature - - Respiratory Rate - - Oxygen Saturation - - Inhaled Oxygen Concentration - - Weight 50.3 kg (111 lb) 12/26/2020 1:57 PM CDT Height 157.5 cm (5' 2 ) 12/26/2020 1:57 PM CDT Body Mass Index 20.3 12/26/2020 1:57 PM CDT Plan of Treatment Health Maintenance Due Date Last Done Comments DTAP/TDAP/TD VACCINES (1 - Tdap) 1976 FIT-DNA Q 3 years 2002 FIT/FOBT Q 1 year 2002 Flex Sig/CT Colonography Q 5 years 2002 PNEUMOCOCCAL VACCINE 50+ YEA RS (1 of 1 - PCV) 2007 ZOSTER VACCINE (1 of 2) 2007 INFLUENZA VACCINE (#1) 2024 03/27/2020, 2017 BREAST CANCER SCREENING 08/22/2025 08/23/19 25, 08/10/2023, 07/28/2022, Additional history exists COLORECTAL SCREENING 07/16/2028 07/16/2018 (Previously completed) Colorectal Cancer Screening 07/16/2028 RSV VACCINE (60+ or ) (1 - 1-dose 75+ series) 2032 OSTEOPOROSIS SCREENING Completed , 07/28/2022, 01/06/2020, Additional history exists Procedures Procedure Name Priority Date/Time Associated Diagnosis Comments XR DEXA BONE DENSITY AXIAL 1 OR MORE SITES Routine 08/22/2024 2:34 PM CDT Age-related osteoporosis without current pathological fracture MAMMO 3D QUETA SCREEN BILAT W OR WO CAD Routine 08/22/2024 2:15 PM CDT Visit for screening mammogram from Last 3 Months Results * XR DEXA BONE DENSITY AXIAL 1 OR MORE SITES (08/22/2024 2:34 PM CDT) Anatomical Region Laterality Modality Digital Radiogra phy 08/22/2024 2:34 PM CDT Impressions 08/22/2024 2:47 PM CDT IMPRESSION: Osteoporosis. Lumbar Spine: T-score: -2.2 Left Femoral Neck: T-score: -2.0 Left Total Femur: T-score: -1.7 Right Femoral Neck: T-score: -2.5 Right Total Femur: T-score: -1.8 FRAX FRACTURE RISK ASSESSMENT: 10-Year probability of fracture Major osteoporotic fracture: 26.5 % Defined as fracture of the spine, hip or shoulder. Hip fracture: 6.9 % This is a summary page. Please refer to the complete detailed report found in: Imaging Section of the [facility] EMR. Definitions: Normal: T-score above -1.0 Osteopenia T-score less than -1.0 and above -2.5 Osteoporosis: T-score <= -2.5 Note: Clinical Osteoporosis may be based on other factors besides DXA calculated BMD. OTher factors include and are not limited to fragility fractures, subclinical compression fractures,osteopenia and elevated FRAX Scores. A major osteoporotic fracture is defined as a fracture of the spine, forearm, hip or shoulder. Dictated by Dr. Kiran Carias MD DICTATION LOCATION: 08/22/2024 2:47 PM CDT EXAMINATION: BONE DENSITY STUDY (DXA) DATE: 08/22/2024 2:34 PM HISTORY: 69 years Female. Postmenopausal. Osteopenia. PROCEDURE: Planar images of the lumbar spine and hip(s). [employer] DEXA scanner for bone mineral density determination (BMD). Prior bone density: 07/28/2022 FINDINGS: Lumbar Spine (L1-L3): T-score: -2.2 Prior T-score: -2.0 Left Femoral Neck: T-score: -2.0 Prior T-score: -1.8 Left Total Femur: T-score: -1.7 Right Femoral Neck: T-score: -2.5 Prior T-score: -2.4 Right Total Femur: T-score: -1.8 TECHNICAL ISSUES: L4 excluded because of degenerative changes. Procedure Note Kiran Carias MD - 08/22/2024 EXAMINATION: BONE DENSITY STUDY (DXA) DATE: 08/22/2024 2:34 PM HISTORY: 69 years Female. Postmenopausal. Osteopenia. PROCEDURE: Planar images of the lumbar spine and hip(s). [employer] DEXA scanner for bone mineral density determination (BMD). Prior bone density: 07/28/2022 FINDINGS: Lumbar Spine (L1-L3): T-score: -2.2 Prior T-score: -2.0 Left Femoral Neck: T-score: -2.0 Prior T-score: -1.8 Left Total Femur: T-score: -1.7 Right Femoral Neck: T-score: -2.5 Prior T-score: -2.4 Right Total Femur: T-score: -1.8 TECHNICAL ISSUES: L4 excluded because of degenerative changes. IMPRESSION: Osteoporosis. Lumbar Spine: T-score: -2.2 Left Femoral Neck: T-score: -2.0 Left Total Femur: T-score: -1.7 Right Femoral Neck: T-score: -2.5 Right Total Femur: T-score: -1.8 FRAX FRACTURE RISK ASSESSMENT: 10-Year probability of fracture Major osteoporotic fracture: 26.5 % Defined as fracture of the spine, hip or shoulder. Hip fracture: 6.9 % This is a summary page. Please refer to the complete detailed report found in: Imaging Section of the [facility] EMR. Definitions: Normal: T-score above -1.0 Osteopenia T-score less than -1.0 and above -2.5 Osteoporosis: T-score <= -2.5 Note: Clinical Osteoporosis may be based on other factors besides DXA calculated BMD. OTher factors include and are not limited to fragility fractures, subclinical compression fractures,osteopenia and elevated FRAX Scores. A major osteoporotic fracture is defined as a fracture of the spine, forearm, hip or shoulder. Dictated by Dr. Kiran Carias MD DICTATION LOCATION: 1 Ney Frazier MD DIAGNOSTIC IMAGING ORDERAB LES Final Result * MAMMO 3D QUETA SCREEN BILAT W OR WO CAD (08/22/2024 2:15 PM CDT) Anatomical Region Laterality Modality Breast Bilateral Mammography 08/22/2024 2:15 PM CDT Impressions 08/22/2024 2:32 PM CDT IMPRESSION: No mammographic evidence of malignancy is identified in either breast. Routine screening mammography is recommended in one year. OVERALL FINAL ASSESSMENT: BI-RADS CATEGORY 1 - Negative DICTATION LOCATION: [facility] Narrative 08/22/2024 2:32 PM CDT EXAMINATION: MAMMO 3D QUETA SCREEN BILAT W OR WO CAD DATE: 08/22/2024 2:15 PM HISTORY: Routine screening mammography. COMPARISON: 08/10/2023, 07/28/2022, 03/25/2021. TECHNIQUE: Bilateral screening mammogram was performed. Low-dose full-field digital breast tomosynthesis examination was performed with 2D and 3D acquisitions. Examination is read in conjunction with computer aided detection. BREAST COMPOSITION: There are scattered areas of fibroglandular density. FINDINGS: No new suspicious findings are identified in either breast on mammogram. us Ney Frazier MD MAMMO ORDERABLES Final Res ult from Last 3 Months Insurance MEDICARE PART A AND B [employer]IG[employer] MCR SUPP JOY [place] [id number] RX [employer] RX Member Subscriber Plan / Payer (Ef fective 2021-Present) Name:Francisca Ledezma Relation to Subscriber:Self Name:Francisca Ledezma Subscriber ID:Not on file Payer ID:Not on file Type:RX Commercial Address: [address] [employer] Commercial Care Teams Weir Fisherman Relationship Specialty Start Date End Date Ney Frazier MD PCP - General Family Practice 07/10/17
--- OUTSIDE RECORDS SUMMARY | 2024-09-21 12:12 | XMS_ITS | Encounter Summary ---
Author Organization [email or web address] Address 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
[2024-09-21 12:52] LABS: Albumin Level 4.6 g/dL (3.5-5.1)
== END 2024-09-21 10:39 | disposition home or self-care (01) ==
LOC: ANHLAB 10:40
PROVIDERS: PCP Family Medicine; Visit Provider Family Medicine
DX: Z92.29 Personal history of other drug therapy (principal); Z88.8 Allergy status to other drugs, medicaments and biological substances
CPT/HCPCS: 36415; 82040; 82310

== ENCOUNTER 2025-02-20 14:51 | Outpatient (CLI) | payer MEDICARE, SELFPAY ==
--- OUTSIDE RECORDS SUMMARY | 2025-02-20 14:54 | XMS_ITS | Encounter Summary ---
Author Organization [facility] Address [address] [place] [address] Care Team Providers Care Operation Agent Name Role Phone Ney Frazier MD Primary Care Provider +1- [phone] Encounter Details Date Type Department Care Team (Late st Contact Info) Description 04/27/2000 Outpatient Historical [facility] AVP - Medical [facility] [id number] [place] [address] Guilherme Montes De Oca MD [address] [facility] [address] [place] [address] Social History Tobacco Use Types Packs/Day Years Used Date Smoking Tobacco: Never Assessed Comments Unknown Sex and Gender Information Value Date Recorded Sex Assigned at Not on file 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
--- OUTSIDE RECORDS SUMMARY | 2025-02-20 14:54 | XMS_ITS | Encounter Summary ---
Author Organization [facility] Address 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
--- OUTSIDE RECORDS SUMMARY | 2025-02-20 14:54 | XMS_ITS | Encounter Summary ---
Author Organization [facility] Address [address] [place] [address] Care Team Providers Care Framing Mill Operator Name Role Phone Ney Frazier MD Primary Care Provider +1- [phone] Encounter Details Date Type Department Care Team (Late st Contact Info) Description 04/26/2001 Outpatient Historical [facility] CLERICAL ASSIGNER - Medical [facility] [id number] [place] [address] Guilherme Montes De Oca MD [address] 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
--- OUTSIDE RECORDS SUMMARY | 2025-02-20 14:54 | XMS_ITS | Encounter Summary ---
Author Organization [facility] Address [address] [place] [address] Care Team Providers Care Epic Cupid Analyst Name Role Phone Ney Frazier MD Primary Care Provider +1- [phone] Encounter Details Date Type Department Care Team (Late st Contact Info) Description 04/17/1999 Outpatient Historical [facility] SEED CORN MANAGER PRODUCTION - Medical [facility] [id number] [place] [address] Guilherme Montes De Oca MD [address] [facility] [address] [place] [address] Social History Tobacco Use Types Packs/Day Years Used Date Smoking Tobacco: Never Assessed Comments Unknown Sex and Gender Information Value Date Recorded Sex Assigned at Not on file Legal Sex Female 4:57 AM DIRECTOR SUPPLIER QUALITY Gender Identity Not on file Sexual Orientation Not on file documented as of this encounter Plan of Treatment Not on file documented as of this encounter Visit Diagnoses Not on filedocumented in this encounter Care Teams Epic Cupid Analyst Relationship Specialty Start Date End Date Ney Frazier MD PCP - General Family Practice 07/10/17 documented as of this encounter
--- OUTSIDE RECORDS SUMMARY | 2025-02-20 14:54 | XMS_ITS | Encounter Summary ---
Author Organization [facility] Address 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
--- OUTSIDE RECORDS SUMMARY | 2025-02-20 14:54 | XMS_ITS | Encounter Summary ---
Author Organization [facility] Address [address] [place] [address] Care Team Providers Care Supervisor Travel Trailer Name Role Phone Ney Frazier MD Primary Care Provider +1- [phone] Encounter Details Date Type Department Care Team (Late st Contact Info) Description 04/18/2002 Outpatient Historical [facility] SKID ADZER - [facility] [address] [facility] [address] [place] [address] Guilherme Montes De Oca MD [address] [facility] [address] [address] Social History Tobacco Use Types Packs/Day Years Used Date Smoking Tobacco: Never Assessed Comments Unknown Sex and Gender Information Value Date Recorded Sex Assigned at Not on file Legal Sex Female 4:57 AM DULSER Gender Identity Not on file Sexual Orientation Not on file documented as of this encounter Plan of Treatment Not on file documented as of this encounter Visit Diagnoses Not on filedocumented in this encounter Care Teams Supervisor Travel Trailer Relationship Specialty Start Date End Date Ney Frazier MD PCP - General Family Practice 07/10/17 documented as of this encounter
--- OUTSIDE RECORDS SUMMARY | 2025-02-20 14:54 | XMS_ITS | Encounter Summary ---
Author Organization [facility] Address [address] [place] [address] Care Team Providers Care Song Lyricist Name Role Phone Ney Frazier MD Primary Care Provider +1- [phone] Encounter Details Date Type Department Care Team (Latest Contact Info) Description 09/17/2001 Outpatient Historical [facility] Fan Villanueva MD [address] [facility] [address] [place] [id number] SCREENING MAMM-MAILG NEOPL-OTHER (Primary Dx) Social History Tobacco Use Types Packs/Day Years Used Date Smoking Tobacco: Never Assessed Comments Unknown Sex and Gender Information Value Date Recorded Sex Assigned at Not on file Legal Sex Female 4:57 AM DISC JOCKEY Gender Identity Not on file Sexual Orientation Not on file documented as of this encounter Plan of Treatment Not on file documented as of this encounter Visit Diagnoses Diagnosis Other screening mammogram- Primary documented in this encounter Care Teams Song Lyricist Relationship Specialty Start Date End Date Ney Frazier MD PCP - General Family Practice 07/10/17 documented as of this encounter
--- OUTSIDE RECORDS SUMMARY | 2025-02-20 14:55 | XMS_ITS | Encounter Summary ---
Author Organization [facility] Address [address] [place] [address] Care Team Providers Care Cuff Knitter Name Role Phone Ney Frazier MD Primary Care Provider +1- [phone] Encounter Details Date Type Department Care Team (Latest Contact Info) Description 12/26/2003 Outpatient Historical [facility] Bryan Rodríguez MD NO ADDRESS ON FILE ENURESIS NOS (Primary Dx) Social History Tobacco Use Types Packs/Day Years Used Date Smoking Tobacco: Never Assessed Comments Unknown Sex and Gender Information Value Date Recorded Sex Assigned at Not on file Legal Sex Female 4:57 AM SIGNAL MANAGER Gender Identity Not on file Sexual Orientation Not on file documented as of this encounter Plan of Treatment Not on file documented as of this encounter Visit Diagnoses Diagnosis Unspecified urinary incontinence- Primary documented in this encounter Care Teams Cuff Knitter Relationship Specialty Start Date End Date Ney Frazier MD PCP - General Family Practice 07/10/17 documented as of this encounter
--- OUTSIDE RECORDS SUMMARY | 2025-02-20 14:55 | XMS_ITS | Encounter Summary ---
Author Organization [facility] Address [address] [place] [address] Care Team Providers Care Media Marketing Manager Name Role Phone Ney Frazier MD Primary Care Provider +1- [phone] Encounter Details Date Type Department Care Team (Late st Contact Info) Description 02/06/2004 Outpatient Historical [facility] FREIGHT LOADER - [facility] [address] [facility] [address] [place] [address] Guilherme Montes De Oca MD [address] [facility] [address] [address] Social History Tobacco Use Types Packs/Day Years Used Date Smoking Tobacco: Never Assessed Comments Unknown Sex and Gender Information Value Date Recorded Sex Assigned at Not on file Legal Sex Female 4:57 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
--- OUTSIDE RECORDS SUMMARY | 2025-02-20 14:55 | XMS_ITS | Encounter Summary ---
Author Organization [facility] Address [address] [place] [address] Care Team Providers Care Encephalographer Name Role Phone Ney Frazier MD Primary Care Provider +1- [phone] Encounter Details Date Type Department Care Team (Latest Contact Info) Description 10/29/2005 Outpatient Historical [facility] Guilherme Montes De Oca MD [address] [facility] [address] [address] Disorder of Bone and Cartilage, Unspecified (Primary Dx) Social History Tobacco Use Types Packs/Day Years Used Date Smoking Tobacco: Never Assessed Comments Unknown Sex and Gender Information Value Date Recorded Sex Assigned at Not on file Legal Sex Female 4:57 AM SURVEILLANCE INVESTIGATOR Gender Identity Not on file Sexual Orientation Not on file documented as of this encounter Plan of Treatment Not on file documented as of this encounter Visit Diagnoses Diagnosis Disorder of bone and cartilage, unspecified- Primary documented in this encounter Care Teams Encephalographer Relationship Specialty Start Date End Date Ney Frazier MD PCP - General Family Practice 07/10/17 documented as of this encounter
--- OUTSIDE RECORDS SUMMARY | 2025-02-20 14:55 | XMS_ITS | Clinical Summary ---
Author Organization [facility] Address [address] [place] [address] Phone Care Team Providers Care Leasing Sales Consultant Name Role Phone Ney Frazier MD Primary Care Provider +1- [phone] Allergies Active Allergy Reactions Criticality Noted Date [...] Encounters Date Type Department Care Team Description 01/18/2025 External Device Data STL ABSTRACTION Provider, Abstract 12/28/2024 External Device Data STL ABSTRACTION Provider, Abstract 12/06/2024 External Device Data STL ABSTRACTION Provider, Abstract [...] on file Legal Sex Female 4:57 AM DRESSAGE JUDGE Gender Identity Not on file Sexual Orientation Not on file 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 Not on file Not on file Last Filed Vital Signs Vital Sign Reading Time Taken Comments Blood Pressure 126/72 12/26/2020 1:57 PM CDT Pulse 61 06/24/2018 9:45 AM DRESSAGE JUDGE Temperature - - Respiratory Rate - - Oxygen Saturation - - Inhaled Oxygen Concentration - - Weight 50.3 kg (111 lb) 12/26/2020 1:57 PM CDT Height 157.5 cm (5' 2) 12/26/2020 1:57 PM CDT Body Mass Index [...] (1 of 2) 2007 INFLUENZA VACCINE (#1) 2025 03/27/2020, 2017 BREAST CANCER SCREENING 08/22/2025 08/23/19, 08/10/2023, 07/28/2022, Additional history exists COLORECTAL SCREENING 07/16/2028 07/16/2018 (Previously completed) Colorectal Cancer Screening 07/16/2028 OSTEOPOROSIS SCREENING 08/22/2029 , 07/28/2022, 01/06/2020, Additional history exists RSV VACCINE (60+ or ) (1 - 1-dose 75+ series) 2032 Procedures Procedure Name Priority Date/Time Associated Diagnosis Comments XR DEXA BONE DENSITY AXIAL 1 OR MORE SITES Routine 08/22/2024 2:34 PM CDT Age-related osteoporosis without current pathological fracture MAMMO 3D QUETA SCREEN BILAT W OR WO CAD Routine 08/22/2024 2:15 PM CDT Visit for screening mammogram from Last 3 Months or Most Recently Relevant to Health Maintenance Results * XR DEXA BONE DENSITY AXIAL [...] report found in: Imaging Section of the [facility] EMR. Definitions: Normal: T-score above -1.0 Osteopenia [...] Dr. Kiran Carias MD DICTATION LOCATION: 1 08/22/2024 2:47 PM CDT EXAMINATION: BONE DENSITY STUDY (DXA) DATE: 08/22/2024 2:34 PM HISTORY: 69 years Female. Postmenopausal. Osteopenia. PROCEDURE: Planar images of the lumbar spine and hip(s). LUN[employer] DEXA scanner for bone mineral density determination [...] images of the lumbar spine and hip(s). LUNAR DEXA scanner for bone mineral density determination [...] report found in: Imaging Section of the [facility] EMR. Definitions: Normal: T-score above -1.0 Osteopenia [...] ORDERAB LES Final Result * MAMMO 3D QUEAT SCREEN BILAT W OR WO CAD (08/22/2024 2:15 PM CDT) Anatomical Region Laterality Modality Breast Bilateral Mammography 08/22/2024 2:15 PM CDT Impressions 08/22/2024 2:32 PM CDT IMPRESSION: No mammographic evidence of malignancy is identified in either breast. Routine screening mammography is recommended in one year. OVERALL FINAL ASSESSMENT: BI-RADS CATEGORY 1 - Negative DICTATION LOCATION: [facility] 08/22/2024 2:32 PM CDT EXAMINATION: MAMMO 3D [...] are identified in either breast on mammogram. Ney Frazier MD MAMMO ORDERABLES Final Res ult from Last 3 Months or Most Recently Relevant to Health Maintenance Insurance MEDICARE PART A AND B [employer]IG[employer] MCR SUPP JOY AVENDANO [id number] RX [employer] RX Member Subscriber Plan / Payer (Ef fective 2021-Present) Name:Francisca Ledezma Relation to Subscriber:Self Name:Francisca Ledezma Subscriber ID:Not on file Payer ID:Not on file Type:RX Commercial Address: [place] [employer] Care Teams Leasing Sales Consultant Relationship Specialty Start Date End Date Ney Frazier MD PCP - General Family Practice 07/10/17
--- OUTSIDE RECORDS SUMMARY | 2025-02-20 14:55 | XMS_ITS | Encounter Summary ---
Author Organization [facility] Address [address] [place] [address] Care Team Providers Care Lime Filter Operator Name Role Phone Ney Frazier MD Primary Care Provider +1- [phone] Encounter Details Date Type Department Care Team (Late st Contact Info) Description 04/10/2004 Outpatient Historical [facility] PRESS DEPARTMENT MANAGER - [facility] [address] [facility] [address] [place] [address] Guilherme Montes De Oca MD [address] [facility] [address] [address] Social History Tobacco Use Types Packs/Day Years Used Date Smoking Tobacco: Never Assessed Comments Unknown Sex and Gender Information Value Date Recorded Sex Assigned at Not on file 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
--- OUTSIDE RECORDS SUMMARY | 2025-02-20 14:55 | XMS_ITS | Encounter Summary ---
Author Organization [facility] Address [address] [place] [address] Care Team Providers Care Canary Breeder Name Role Phone Ney Frazier MD Primary Care Provider +1- [phone] Encounter Details Date Type Department Care Team (Latest Contact Info) Description 11/27/2008 Outpatient Historical [facility] Roberto Deal MD [address] [place] [address] Asymptomatic Postmenopausal Status (Age-Related) (Natural); Special Screening for Osteoporosis Social History Tobacco Use Types Packs/Day Years Used Date Smoking Tobacco: Never Assessed Comments Unknown Sex and Gender Information Value Date Recorded Sex Assigned at Not on file Legal Sex Female 4:57 AM 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
--- OUTSIDE RECORDS SUMMARY | 2025-02-20 14:55 | XMS_ITS | Encounter Summary ---
Author Organization [facility] Address [address] [place] [address] Care Team Providers Care Cost Specialist Name Role Phone Ney Frazier MD Primary Care Provider +1- [phone] Encounter Details Date Type Department Care Team (Late st Contact Info) Description 04/30/2005 Outpatient Historical [facility] P[facility]OT - [facility] [address] [facility] [address] [place] [address] Guilherme Montes De Oca MD [address] [facility] [address] [address] Social History Tobacco Use Types Packs/Day Years Used Date Smoking Tobacco: Never Assessed Comments Unknown Sex and Gender Information Value Date Recorded Sex Assigned at Not on file Legal Sex Female 4:57 AM WAIT STAFF Gender Identity Not on file Sexual Orientation Not on file documented as of this encounter Plan of Treatment Not on file documented as of this encounter Visit Diagnoses Not on filedocumented in this encounter Care Teams Cost Specialist Relationship Specialty Start Date End Date Ney Frazier MD PCP - General Family Practice 07/10/17 documented as of this encounter
--- OUTSIDE RECORDS SUMMARY | 2025-02-20 14:55 | XMS_ITS | Encounter Summary ---
Author Organization [facility] Address [address] [place] [address] Care Team Providers Care Jackspooler Name Role Phone Ney Frazier MD Primary Care Provider +1- [phone] Encounter Details Date Type Department Care Team (Latest Contact Info) Description 11/18/2006 Outpatient Historical [facility] Guilherme Zheng MD [address] [facility] [address] [address] Other Screening Mammogram (Primary Dx) Social History Tobacco Use Types Packs/Day Years Used Date Smoking Tobacco: Never Assessed Comments Unknown Sex and Gender Information Value Date Recorded Sex Assigned at Not on file Legal Sex Female 4:57 AM 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
--- OUTSIDE RECORDS SUMMARY | 2025-02-20 14:55 | XMS_ITS | Encounter Summary ---
Author Organization [facility] Address [address] [place] [address] Care Team Providers Care Drying And Winding Supervisor Name Role Phone Ney Frazier MD Primary Care Provider +1- [phone] Encounter Details Date Type Department Care Team (Latest Contact Info) Description 09/29/2002 Outpatient Historical [facility] Guilherme Zheng MD [address] [facility] [address] [address] SCREENING MAMM-MAILG NEOPL-OTHER (Primary Dx) Social History Tobacco Use Types Packs/Day Years Used Date Smoking Tobacco: Never Assessed Comments Unknown Sex and Gender Information Value Date Recorded Sex Assigned at Not on file Legal Sex Female 4:57 AM AIRLINE FLIGHT ATTENDANT Gender Identity Not on file Sexual Orientation Not on file documented as of this encounter Plan of Treatment Not on file documented as of this encounter Visit Diagnoses Diagnosis Other screening mammogram- Primary documented in this encounter Care Teams Drying And Winding Supervisor Relationship Specialty Start Date End Date Ney Frazier MD PCP - General Family Practice 07/10/17 documented as of this encounter
--- OUTSIDE RECORDS SUMMARY | 2025-02-20 14:55 | XMS_ITS | Encounter Summary ---
Author Organization [employer] Address [address] [place] [address] Care Team Providers Care Billet Straightener Name Role Phone Ney Frazier MD Primary Care Provider +1- [phone] Encounter Details Date Type Department Care Team (Latest Contact Info) Description 11/18/2006 Outpatient Historical [facility] Guilherme Montes De Oca MD [address] [facility] [address] [address] Special Screening for Osteoporosis (Primary Dx) Social History Tobacco Use Types Packs/Day Years Used Date Smoking Tobacco: Never Assessed Comments Unknown Sex and Gender Information Value Date Recorded Sex Assigned at Not on file Legal Sex Female 4:57 AM YARD DEMURRAGE CLERK Gender Identity Not on file Sexual Orientation Not on file documented as of this encounter Plan of Treatment Not on file documented as of this encounter Visit Diagnoses Diagnosis Special screening for osteoporosis- Primary documented in this encounter Care Teams Billet Straightener Relationship Specialty Start Date End Date Ney Frazier MD PCP - General Family Practice 07/10/17 documented as of this encounter
--- OUTSIDE RECORDS SUMMARY | 2025-02-20 14:55 | XMS_ITS | Encounter Summary ---
Author Organization [employer] Address [address] [place] [address] Care Team Providers Care Hack Driver Name Role Phone Ney Frazier MD Primary Care Provider +1- [phone] Encounter Details Date Type Department Care Team (Late st Contact Info) Description 01/22/[address] [facility] Support Serv. ([facility] Card[facility]) [address] [place] [address] Oseas Aguilar Social History Tobacco Use Types Packs/Day Years Used Date Smoking Tobacco: Never Assessed Comments Unknown Sex and Gender Information Value Date Recorded Sex Assigned at Not on file Legal Sex Female 4:57 AM STRAP CUTTER Gender Identity Not on file Sexual Orientation Not on file documented as of this encounter Plan of Treatment Not on file documented as of this encounter Visit Diagnoses Not on filedocumented in this encounter Care Teams Hack Driver Relationship Specialty Start Date End Date Ney Frazier MD PCP - General Family Practice 07/10/17 documented as of this encounter
--- OUTSIDE RECORDS SUMMARY | 2025-02-20 14:55 | XMS_ITS | Encounter Summary ---
Author Organization [employer] Address [address] [place] [address] Care Team Providers Care Registration Clerk Name Role Phone Ney Frazier MD Primary Care Provider +1- [phone] Encounter Details Date Type Department Care Team (Latest Contact Info) Description 02/06/2004 Inpatient Historical [facility] Guilherme Montes De Oca MD [address] [facility] [address] [address] Bryan Rodríguez MD NO ADDRESS ON FILE UTERINE PROLAPSE (Primary Dx) Social History Tobacco Use Types Packs/Day Years Used Date Smoking Tobacco: Never Assessed Comments Unknown Sex and Gender Information Value Date Recorded Sex Assigned at Not on file 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
--- OUTSIDE RECORDS SUMMARY | 2025-02-20 14:55 | XMS_ITS | Encounter Summary ---
Author Organization [facility] Address [address] [place] [address] Care Team Providers Care Clinical Research Nurse Coordinator Name Role Phone Ney Frazier MD Primary Care Provider +1- [phone] Encounter Details Date Type Department Care Team (Latest Contact Info) Description 11/27/2008 Outpatient Historical [facility] REBECCA Mitchell, Aleida Rojas MD [address] [place] [address] Other Screening Mammogram Social History Tobacco Use Types Packs/Day Years Used Date Smoking Tobacco: Never Assessed Comments Unknown Sex and Gender Information Value Date Recorded Sex Assigned at Not on file Legal Sex Female 4:57 AM 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 AND 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 Gender Identity Not on file Sexual Orientation [...] PM CDT Narrative 11/28/2008 7:59 AM CDT [address] [address] Admit Date: 11/27/2008 GIL LEDEZMA Sex: F Admit Prov: ALEIDA MITCHELL Date: 1955 Primary Care Prov: DEVANTE DOVE CMRN: [id number] Room: MELISSA N: [id number] IMAGING SERVICES Ordering Prov: ALEIDA MITCHELL Accession Number: [id number] Interpretation BILATERAL SCREENING DIGITAL MAMMOGRAMS WITH COMPUTER [...] SDJ Procedure Note Kari Guzman - 11/28/2008 [address] [place], [place] [address] Admit Date: 11/27/2008 GIL LEDEZMA Sex: F Admit Prov: ALEIDA MITCHELL Date: 1955 Primary Care Prov: DEVANTE DOVE CMRN: [id number] Room: MELISSA N: [id number] IMAGING SERVICES Ordering Prov: ALEIDA MITCHELL Interpretation BILATERAL SCREENING DIGITAL MAMMOGRAMS WITH COMPUTER [...] mammogram documented in this encounter Care Teams Clinical Research Nurse Coordinator Relationship Specialty Start Date End Date Ney Frazier MD PCP - General Family Practice 07/10/17 documented as of this encounter
--- OUTSIDE RECORDS SUMMARY | 2025-02-20 14:55 | XMS_ITS | Encounter Summary ---
Author Organization [employer] Address 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
--- OUTSIDE RECORDS SUMMARY | 2025-02-20 14:55 | XMS_ITS | Encounter Summary ---
Author Organization [facility] Address [address] [place] [address] Care Team Providers Care Pawn Shop Keeper Name Role Phone Ney Frazier MD Primary Care Provider +1- [phone] Encounter Details Date Type Department Care Team (Late st Contact Info) Description 04/15/2006 Outpatient Historical [facility] CUSTOMER SERVICE ENGINEER - [facility] [address] [place] [address] Guilherme Montes De Oca MD [address] [facility] [address] [address] Social History Tobacco Use Types Packs/Day Years Used Date Smoking Tobacco: Never Assessed Comments Unknown Sex and Gender Information Value Date Recorded Sex Assigned at Not on file Legal Sex Female 4:57 AM WELDER PLASTIC Gender Identity Not on file Sexual Orientation Not on file documented as of this encounter Plan of Treatment Not on file documented as of this encounter Visit Diagnoses Not on filedocumented in this encounter Care Teams Pawn Shop Keeper Relationship Specialty Start Date End Date Ney Frazier MD PCP - General Family Practice 07/10/17 documented as of this encounter
--- OUTSIDE RECORDS SUMMARY | 2025-02-20 14:55 | XMS_ITS | Encounter Summary ---
Author Organization [facility] Address [address] [place] [address] Care Team Providers Care Dancing Teacher Name Role Phone Ney Frazier MD Primary Care Provider +1- [phone] Encounter Details Date Type Department Care Team (Latest Contact Info) Description 10/29/2005 Outpatient Historical [facility] Guilherme Zheng MD [address] [facility] [address] [address] Other Screening Mammogram (Primary Dx) Social History Tobacco Use Types Packs/Day Years Used Date Smoking Tobacco: Never Assessed Comments Unknown Sex and Gender Information Value Date Recorded Sex Assigned at Not on file Legal Sex Female 4:57 AM SOLE SCRAPER Gender Identity Not on file Sexual Orientation Not on file documented as of this encounter Plan of Treatment Not on file documented as of this encounter Visit Diagnoses Diagnosis Other screening mammogram- Primary documented in this encounter Care Teams Dancing Teacher Relationship Specialty Start Date End Date Ney Frazier MD PCP - General Family Practice 07/10/17 documented as of this encounter
--- OUTSIDE RECORDS SUMMARY | 2025-02-20 14:55 | XMS_ITS | Encounter Summary ---
Author Organization [facility] Address [address] [place] [address] Care Team Providers Care Gas Mask Assembler Name Role Phone Ney Frazier MD Primary Care Provider +1- [phone] Encounter Details Date Type Department Care Team (Late st Contact Info) Description 02/13/2004 Outpatient Historical [facility] WATERSHED TENDER - Medical [facility] [address] [facility] [address] [place] [address] Guilherme Montes De Oca MD [address] [facility] [address] [place] [address] Social History Tobacco Use Types Packs/Day Years Used Date Smoking Tobacco: Never Assessed Comments Unknown Sex and Gender Information Value Date Recorded Sex Assigned at Not on file Legal Sex Female 4:57 AM TALENT COORDINATOR Gender Identity Not on file Sexual Orientation Not on file documented as of this encounter Plan of Treatment Not on file documented as of this encounter Visit Diagnoses Not on filedocumented in this encounter Care Teams Gas Mask Assembler Relationship Specialty Start Date End Date Ney Frazier MD PCP - General Family Practice 07/10/17 documented as of this encounter
--- OUTSIDE RECORDS SUMMARY | 2025-02-20 14:55 | XMS_ITS | Encounter Summary ---
Author Organization [facility] Address [address] [place] [address] Care Team Providers Care Carpet Installation Specialist Name Role Phone Ney Frazier MD Primary Care Provider +1- [phone] Encounter Details Date Type Department Care Team (Late st Contact Info) Description 04/24/2003 Outpatient Historical [facility] DRY WALL INSTALLER - [facility] [address] [facility] [address] [place] [address] Guilherme Montes De Oca MD [address] [facility] [address] [address] Social History Tobacco Use Types Packs/Day Years Used Date Smoking Tobacco: Never Assessed Comments Unknown Sex and Gender Information Value Date Recorded Sex Assigned at Not on file Legal Sex Female 4:57 AM PICTURE BOOKER Gender Identity Not on file Sexual Orientation Not on file documented as of this encounter Plan of Treatment Not on file documented as of this encounter Visit Diagnoses Not on filedocumented in this encounter Care Teams Carpet Installation Specialist Relationship Specialty Start Date End Date Ney Frazier MD PCP - General Family Practice 07/10/17 documented as of this encounter
--- OUTSIDE RECORDS SUMMARY | 2025-02-20 14:55 | XMS_ITS | Encounter Summary ---
Author Organization [facility] Address [address] [place] [address] Care Team Providers Care Sap Ppm Consultant Name Role Phone Ney Frazier MD Primary Care Provider +1- [phone] Encounter Details Date Type Department Care Team (Late st Contact Info) Description 03/13/2004 Outpatient Historical [facility] LOOM OVERHAULER - [facility] [address] [facility] [address] [place] [address] Guilherme Montes De Oca MD [address] [facility] [address] [address] Social History Tobacco Use Types Packs/Day Years Used Date Smoking Tobacco: Never Assessed Comments Unknown Sex and Gender Information Value Date Recorded Sex Assigned at Not on file Legal Sex Female 4:57 AM BROKERAGE CLERK Gender Identity Not on file Sexual Orientation Not on file documented as of this encounter Plan of Treatment Not on file documented as of this encounter Visit Diagnoses Not on filedocumented in this encounter Care Teams Sap Ppm Consultant Relationship Specialty Start Date End Date Ney Frazier MD PCP - General Family Practice 07/10/17 documented as of this encounter
--- OUTSIDE RECORDS SUMMARY | 2025-02-20 14:55 | XMS_ITS | Encounter Summary ---
Author Organization [facility] Address [address] [place] [address] Care Team Providers Care Family Services Manager Name Role Phone Ney Frazier MD Primary Care Provider +1- [phone] Encounter Details Date Type Department Care Team (Latest Contact Info) Description 10/11/2002 Outpatient Historical [facility] Guilherme Zheng MD [address] 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
--- OUTSIDE RECORDS SUMMARY | 2025-02-20 14:55 | XMS_ITS | Encounter Summary ---
Author Organization [facility] Address [address] [place] [address] Care Team Providers Care Truck Supervisor Name Role Phone Ney Frazier MD Primary Care Provider +1- [phone] Encounter Details Date Type Department Care Team (Late st Contact Info) Description 12/26/2003 Outpatient Historical [facility] BOTTOM TURNING LATHE TURNER - Medical [facility] [id number] [place] [address] Guilherme Montes De Oca MD [address] [facility] [address] [place] [address] Social History Tobacco Use Types Packs/Day Years Used Date Smoking Tobacco: Never Assessed Comments Unknown Sex and Gender Information Value Date Recorded Sex Assigned at Not on file 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
--- OUTSIDE RECORDS SUMMARY | 2025-02-20 14:55 | XMS_ITS | Encounter Summary ---
Author Organization [facility] Address [address] [place] [address] Care Team Providers Care Top Hat Body Maker Name Role Phone Ney Frazier MD Primary Care Provider +1- [phone] Encounter Details Date Type Department Care Team (Latest Contact Info) Description 11/18/2007 Outpatient Historical [facility] REBECCA Mitchell, Aleida Rojas MD [address] [place] [address] Other Screening Mammogram Social History Tobacco Use Types Packs/Day Years Used Date Smoking Tobacco: Never Assessed Comments Unknown Sex and Gender Information Value Date Recorded Sex Assigned at Not on file 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 Gender Identity Not on file Sexual Orientation [...] AM CDT Narrative 11/18/2007 11:20 AM CDT [address] [address] Admit Date: 11/18/2007 GIL LEDEZMA Sex: F Admit Prov: ALEIDA MITCHELL Date: 1955 Primary Care Prov: DEVANTE DOVE CMRN: [id number] Room: MELISSA N: [id number] IMAGING SERVICES Ordering Prov: ALEIDA MITCHELL Accession Number: [id number] Interpretation DIGITAL SCREENING MAMMOGRAM WITH COMPUTER-ASSISTED DIAGNOSIS [...] CXZ Procedure Note Larissa Reed - 11/18/2007 [facility] [address] [place], [place] [address] Admit Date: 11/18/2007 GIL LEDEZMA Sex: F Admit Prov: ALEIDA MITCHELL Date: 1955 Primary Care Prov: DEVANTE DOVE CMRN: [id number] Room: MELISSA N: [id number] IMAGING SERVICES Ordering Prov: ALEIDA MITCHELL Interpretation [...] mammogram documented in this encounter Care Teams Top Hat Body Maker Relationship Specialty Start Date End Date Ney Frazier MD PCP - General Family Practice 07/10/17 documented as of this encounter
--- OUTSIDE RECORDS SUMMARY | 2025-02-20 14:55 | XMS_ITS | Encounter Summary ---
Author Organization [facility] Address 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
--- OUTSIDE RECORDS SUMMARY | 2025-02-20 14:55 | XMS_ITS | Encounter Summary ---
Author Organization [facility] Address [address] [place] [address] Care Team Providers Care Coring Machine Operator Name Role Phone Ney Frazier MD Primary Care Provider +1- [phone] Encounter Details Date Type Department Care Team (Late st Contact Info) Description 12/26/2003 Outpatient Historical [facility] HEALTH SPECIALIST - Medical [facility] [id number] [place] [address] Guilherme Montes De Oca MD [address] [facility] [address] [place] [address] Social History Tobacco Use Types Packs/Day Years Used Date Smoking Tobacco: Never Assessed Comments Unknown Sex and Gender Information Value Date Recorded Sex Assigned at Not on file 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
--- OUTSIDE RECORDS SUMMARY | 2025-02-20 14:55 | XMS_ITS | Encounter Summary ---
Author Organization [facility] Address [address] [place] [address] Care Team Providers Care Road Freight Conductor Name Role Phone Ney Frazier MD Primary Care Provider +1- [phone] Encounter Details Date Type Department Care Team (Latest Contact Info) Description 10/11/2003 Outpatient Historical [facility] Guilherme Zheng MD [address] [facility] [address] [address] SCREENING MAMM-MAILG NEOPL-OTHER (Primary Dx) Social History Tobacco Use Types Packs/Day Years Used Date Smoking Tobacco: Never Assessed Comments Unknown Sex and Gender Information Value Date Recorded Sex Assigned at Not on file 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
[2025-02-20 15:08] LABS: Hematocrit 40.5 % (37.0-47.0); Hemoglobin 13.1 g/dL (12.0-15.0); Mean Corpuscular HGB Conc 32.3 g/dl (32-36); Mean Corpuscular Hemoglobin 31.3 pg (26-34); Mean Corpuscular Volume 96.9 fl (80-100); Platelet Count Result 238 k/mm3 (150-375); Red Blood Count 4.18 M/mm3 (4.2-5.4); White Blood Count 5.4 K/mm3 (4.5-10.0)
[2025-02-20 15:29] LABS: Alanine Aminotransferase 22 U/L (6-35); Albumin Level 4.3 g/dL (3.5-5.1); Alkaline Phosphatase 47 U/L (38-126); Anion Gap 5 mmol/L (4-12); Aspartate Amino Transferase 31 U/L (14-36); Bilirubin,Total 0.4 mg/dL (0.2-1.3); Blood Urea Nitrogen 14 mg/dL (7-17); Calcium 9.0 mg/dL (8.4-10.2); Carbon Dioxide 30 mmol/L (22-30); Chloride 99 mmol/L (98-107); Estimated Glomerular Filt Rate > 60; Glucose 102 mg/dL (65-110); Potassium 3.5 mmol/L (3.4-5.0); Sodium 134 mmol/L (137-145); Total Protein 7.4 g/dL (6.3-8.2)
[2025-02-20 16:01] LABS: Thyroid Stimulating Hormone 2.920 uIU/mL (0.465-4.680)
== END 2025-02-20 14:52 | disposition home or self-care (01) ==
PROVIDERS: PCP Family Medicine; Visit Provider Family Medicine
DX: E03.9 Hypothyroidism, unspecified (principal); E61.1 Iron deficiency
CPT/HCPCS: 36415; 80053; 84443; 85027